=== PATIENT | male | born 1995 | race Caucasian/White ===

== ENCOUNTER 2020-05-26 14:40 | Emergency (ER) | payer SELFPAY ==
--- NOTE | ~2020-05-26 | XR_ITS ---
XR shoulder RT min 2V DATE: 05/26/2020 15:11 INDICATION: Fall on lateral/posterior shoulder. Anterior pain. TECHNIQUE: 4 views COMPARISON: None FINDINGS: No fracture or dislocation, periosteal reaction or bone destruction or abnormal soft tissue calcification. Normal alignment at the acromioclavicular and glenohumeral joints. IMPRESSION: Negative Reviewed, dictated and finalized at location B. [facility] IMPRESSION: Negative
[2020-05-26 14:47] VITALS: BP 143/76; PULSE 74; RESP 20; TEMP 36.4; O2SAT 100
--- NOTE | 2020-05-26 14:56 | ED.GENADULT ---
HPI - General Adult General Chief complaint: Extremity Injury, Upper Stated complaint: right collarbone injury Time Seen by Provider: 05/26/20 14:56 Source: patient and RN notes reviewed Mode of arrival: ambulatory Limitations: no limitations History of Present Illness HPI narrative: 24-year-old male presents with complaints of right shoulder and collar bone pain for the past 3 days. Dylan reports that he fell out of a chair forward hitting right shoulder and collar bone area on floor causing RT anterior shoulder and collar bone injury and pain. Tylenol (2 doses) last this morning 05:00 with no relief. Denies numbness or tingling. Hurts with movement of shoulder. Denies radiating pain. No loss of mobility. No swelling. Exacerbating factor is movement and palpation. Little relieving factor is rest. The dominant hand is the LEFT HAND. Remains active. The patient reports he have not been diagnosed with COVID-19. The patient reports he is not waiting for the results of a COVID-19 lab test. The patient reports he do not have fever, chills, weakness, or fatigue. The patient reports he do not have a new or worsening cough or shortness of breath. Denies chest pain. The patient reports he do not have any rhinorrhea, congestion, loss of taste, sore throat, nausea, vomiting, abdominal pain, and diarrhea. Tolerating po intake well. Denies recent traveling. Denies concerns for COVID-19 or exposures but was arrested over the weekend and in intermediate until 05/25/2015:00. At this time, patient is not suspected of having COVID-19. Some parts of this dictation were generated by voice recognition software and may contain typographical and/or grammatical inaccuracies. Related Data Allergies Allergy/AdvReac Type Severity Reaction Status Date / Time No Known Allergies Allergy Verified 05/26/20 14:57 Review of Systems Review of Systems: Narrative: CONSTITUTIONAL: Denies fever, chills, sweats. EYES: Denies visual changes, redness, discharge. ENT: Denies rhinorrhea, congestion, sore throat, otalgia. CARDIOVASCULAR: Denies chest pain, palpitations, edema. RESPIRATORY: Denies dyspnea, wheezing, cough. GASTROINTESTINAL: Denies abdominal pain, nausea, vomiting, diarrhea. SKIN: Denies rash or itching. MUSCULOSKELETAL: Denies acute back pain or myalgia. Complains of right shoulder and collar bone pain. NEUROLOGIC: Denies numbness or focal weakness. PSYCHIATRIC: Denies anxiety or depression. All other systems reviewed & are unremarkable except as noted in HPI and below. [facility] Past Medical History Medical History (Updated 05/26/20 @ 15:56 by EVELIA Hendricks) No significant past medical history Surgical History Surgical History (Updated 05/26/20 @ 15:56 by EVELIA Hendricks) No significant past surgical history Family History Family History (Updated 05/26/20 @ 15:57 by EVELIA Hendricks) Father Unknown family medical history Mother Hypertension Social History Social History (Updated 05/26/20 @ 16:01 by EVELIA Hendricks) Smoking status: Former smoker Tobacco type: cigarettes Second hand tobacco smoke exposure: No Smoking end date: 11/09/09 Alcohol intake: current Substance use: current Substance use type: marijuana Other substance usage details: Daily Living arrangements: with family Occupation/Education: unemployed Gender identity (if verbalized by the patient): Male Comments At time of signature, agree with nurse past medical, surgical, social, and family history. There is no relevant family history pertinent to the presenting complaint. Exam Narrative: Exam Narrative: GENERAL: This is a well-nourished, well-developed patient, in no apparent distress. Talks in full sentences and ambulates with steady gait without dyspnea. HEAD: normocephalic, atraumatic. EYES: PERRL. Sclera clear/white. Vision is grossly intact. NECK: Neck supple, non-tender without lymphadenopathy, m
[2020-05-26 14:57] VITALS: BP 143/76; PULSE 74; RESP 20; TEMP 36.4; O2SAT 100
[2020-05-26] MEDS: KETOROLAC (*BKC) 60 MG/2 ML VIAL IM (15:21)
== END 2020-05-26 15:45 | disposition home or self-care (01) ==
PROVIDERS: Emergency Provider Nurse Practitioner Family
DX: S20.211A Contusion of right front wall of thorax, initial encounter (principal); W07.XXXA Fall from chair, initial encounter; S43.401A Unspecified sprain of right shoulder joint, initial encounter; S40.011A Contusion of right shoulder, initial encounter; Z87.891 Personal history of nicotine dependence
CPT/HCPCS: 73030; 96372; 99213; G0463; J1885

== ENCOUNTER 2021-04-17 10:44 | Emergency (ER) | payer SELFPAY ==
--- NOTE | 2021-04-17 10:48 | ED.URI ---
HPI - URI/Sore Throat General Chief Complaint: Upper Respiratory Infection Stated Complaint: Congestion Time Seen by Provider: 04/17/21 10:48 Source: patient and RN notes reviewed History of Present Illness HPI Narrative: Patient is a 25-year-old male who presents the urgent care with complaints of sinus congestion. Patient states that started last week and he did have a mild fever. Patient states he had a negative Covid test on and his symptoms have now mostly resolved. Patient states that he missed work last week and needed to be evaluated by a doctor before he goes back to work tomorrow. Patient currently denies any acute complaints. Denies of any fever, nausea, vomiting. Patient did not take anything [id number] for his symptoms last week. No other acute complaints. No acute distress noted. Patient read the plan of care. Some parts of this dictation were generated by voice recognition software and may contain typographical and/or grammatical inaccuracies. Related Data Allergies Allergy/AdvReac Type Severity Reaction Status Date / Time No Known Allergies Allergy Verified 05/26/20 14:57 Review of Systems Review of Systems: CONSTITUTIONAL: Denies fever, chills, or sweats. EYES: Denies visual changes, redness, or discharge. ENT: Denies rhinorrhea,sore throat, or otalgia. Reports a mild sinus congestion CARDIOVASCULAR: Denies chest pain, palpitations, or edema. RESPIRATORY: Denies cough or dyspnea. GASTROINTESTINAL: Denies abdominal pain, nausea, vomiting, or diarrhea. GENITOURINARY: Denies dysuria or hematuria. SKIN: Denies rash or itching. MUSCULOSKELETAL: Denies back pain, joint pain, or myalgia. NEUROLOGIC: Denies headache, numbness, or weakness. All other systems reviewed are negative, except as documented in HPI. [facility] Past Medical History Medical History (Updated 04/17/21 @ 10:59 by EVELIA Marsh) No significant past medical history Surgical History Surgical History (Updated 05/26/20 @ 15:56 by EVELIA Hendricks) No significant past surgical history Family History Family History (Updated 05/26/20 @ 15:57 by EVELIA Hendricks) Father Unknown family medical history Mother Hypertension Social History Social History (Updated 05/26/20 @ 16:01 by EVELIA Hendricks) Smoking status: Former smoker Tobacco type: cigarettes Second hand tobacco smoke exposure: No Smoking end date: 11/09/09 Alcohol intake: current Substance use: current Substance use type: marijuana Other substance usage details: Daily Gender identity (if verbalized by the patient): Male Comments At the time of my signature, I reviewed and agree with the nursing past medical, surgical, social, and family history. There is no relevant family history pertinent to the patient complaint. Exam Narrative: GENERAL: This is a well-nourished, well-developed patient, in no apparent distress. HEAD: normocephalic, atraumatic. EYES: PERRL. Sclera clear/white. Vision is grossly intact. EARS: External ears normal, auditory canals clear and without drainage, TMs normal without perforation. Hearing grossly intact. NOSE: External nose normal with no obvious nasal discharge, nares without redness, clear rhinorrhea. THROAT: Mucous membranes moist, posterior pharynx clear. Mild postnasal drainage NECK: Neck supple CARDIOVASCULAR: Regular rate and rhythm without murmurs, gallops, or rubs. RESPIRATORY: Clear to auscultation. Breath sounds equal bilaterally. No wheezes, rales, or rhonchi. SKIN: warm, intact with no suspicious lesions or rash, good texture and turgor. NEURO: awake, alert, and oriented to person, place and time. There were no obvious focal neurologic abnormalities. EXTREMITIES: No clubbing, cyanosis, or edema. Course Vital Signs Vital signs: Vital Signs Temperature 99.0 F 04/17/21 10:50 Pulse Rate 71 04/17/21 10:50 Respiratory Rate 18 04/17/21 10:50 Blood Pressure
[2021-04-17 10:50] VITALS: BP 134/68; PULSE 71; RESP 18; TEMP 37.2; O2SAT 97
== END 2021-04-17 11:03 | disposition home or self-care (01) ==
PROVIDERS: Emergency Provider Nurse Practitioner Family
DX: J00 Acute nasopharyngitis [common cold] (principal); Z87.891 Personal history of nicotine dependence
CPT/HCPCS: 99211; G0463

== ENCOUNTER 2022-10-11 18:31 | Emergency (ER) | payer BC, SELFPAY ==
[2022-10-11 18:38] VITALS: BP 116/78; PULSE 97; RESP 20; TEMP 37.3; O2SAT 99
--- NOTE | 2022-10-11 18:50 | ED.URI ---
HPI - URI/Sore Throat General Chief Complaint: Upper Respiratory Infection Stated Complaint: sore throat / cold Source: patient and RN notes reviewed History of Present Illness HPI Narrative: 26-year-old male presents to urgent care with complaints of congestion sore throat, cough chest tightness, and body aches since yesterday. Patient denies any vomiting, diarrhea, abdominal pain. Patient states his chest hurts coughing. Patient has not taken anything for his symptoms. Related Data Home Medications Medication Instructions Recorded Confirmed No Home Medications 10/11/22 10/11/22 Allergies Allergy/AdvReac Type Severity Reaction Status Date / Time No Known Allergies Allergy Verified 10/11/22 18:47 Review of Systems Review of Systems: Pertinent positives and pertinent negatives per HPI. [facility] Past Medical History Medical History (Updated 10/11/22 @ 19:00 by Shantel Muir, QUINT[place]) No significant past medical history Surgical History Surgical History (Updated 05/26/20 @ 15:56 by EVELIA Hendricks) No significant past surgical history Family History Family History (Updated 05/26/20 @ 15:57 by EVELIA Hendricks) Father Unknown family medical history Mother Hypertension Social History Social History (Updated 05/26/20 @ 16:01 by EVELIA Hendricks) Smoking status: Former smoker Tobacco type: cigarettes Second hand tobacco smoke exposure: No Smoking end date: 11/09/09 Alcohol intake: current Substance use: current Substance use type: marijuana Other substance usage details: Daily Living arrangements: with family Occupation/Education: unemployed Gender identity (if verbalized by the patient): Male Comments At the time of my signature, I reviewed and agree with the nursing past medical, surgical, social, and family history. There is no relevant family history pertinent to the patient complaint. Exam Narrative: GENERAL: This is a well-nourished, well-developed patient, in no apparent distress. HEAD: normocephalic, atraumatic. EYES: Sclera clear/white. Vision is grossly intact. EARS: External ears normal, auditory canals clear and without drainage, TMs normal without perforation. Hearing grossly intact. NOSE: Congestion THROAT: Mucous membranes moist, posterior pharynx erythemic. No exudate noted. NECK: Neck supple, non-tender without lymphadenopathy, masses or thyromegaly. CARDIOVASCULAR: Regular rate and rhythm without murmurs, gallops, or rubs. RESPIRATORY: Clear to auscultation. Breath sounds equal bilaterally. No wheezes, rales, or rhonchi. SKIN: warm, intact with no suspicious lesions or rash, good texture and turgor. NEURO: awake, alert, and oriented to person, place and time. There were no obvious focal neurologic abnormalities. Course Course Level of Care: Express Care Visit Vital Signs Vital signs: Vital Signs Temperature 99.2 F 10/11/22 18:38 Pulse Rate 97 10/11/22 18:38 Respiratory Rate 20 10/11/22 18:38 Blood Pressure 116/78 10/11/22 18:38 Pulse Oximetry 99 10/11/22 18:38 Oxygen Delivery Room Air 10/11/22 18:38 Temperature 99.2 F 10/11/22 18:38 Pulse Rate 97 10/11/22 18:38 Respiratory Rate 20 10/11/22 18:38 Blood Pressure 116/78 10/11/22 18:38 Pulse Oximetry 99 10/11/22 18:38 Oxygen Delivery Room Air 10/11/22 18:38 Reviewed MDM - URI/Sore Throat MDM Narrative Medical decision making narrative: Rapid strep is negative in the office; however we will send to the lab for confirmation; there is a small percentage chance that it can come back positive; if it is, we will call you in 2-3days; and your prescription will be call in to your pharmacy. However, there is NO indication for antibiotic at this time. -Increase your fluids and Vitamin C. -Oral rinses such as: Salt water gargles and/or may use topical anesthetic (eg. Chloraseptic spray) or lozenges to relieve dryness or throat
== END 2022-10-11 19:05 | disposition home or self-care (01) ==
PROVIDERS: Emergency Provider Nurse Practitioner Family
DX: B34.9 Viral infection, unspecified (principal); J02.9 Acute pharyngitis, unspecified; Z87.891 Personal history of nicotine dependence; F12.90 Cannabis use, unspecified, uncomplicated
CPT/HCPCS: 87081; 87880; 99213; G0463

== ENCOUNTER 2023-02-23 19:11 | Emergency (ER) | payer BC, SELFPAY ==
--- NOTE | 2023-02-23 19:13 | ED.SOB ---
HPI - SOB/Dyspnea General Chief Complaint: Shortness of Breath/Dyspnea Stated Complaint: sob Time Seen by Provider: 02/23/23 19:12 Source: patient Mode of arrival: ambulatory Limitations: no limitations History of Present Illness HPI Narrative: Dylan is a 27-year-old male patient presenting to the clinic today with complaints of shortness of breath times, cough, and congestion. He reports no fever or chills. States significant other was sick for 5 days prior to him get sick. Did at home COVID test today and was negative. Symptoms started yesterday after work. Is requesting a work note. Related Data Allergies Allergy/AdvReac Type Severity Reaction Status Date / Time No Known Allergies Allergy Verified 02/23/23 19:16 Review of Systems Review of Systems: Pertinent positives per HPI. Patient denies any fever, chills, rash, headache, visual changes, dizziness, sore throat, chest pain, palpitations, nausea, vomiting, diarrhea, constipation, abdominal pain, or any urinary issues. [facility] Past Medical History Medical History No significant past medical history Surgical History Surgical History No significant past surgical history Family History Family History Father Unknown family medical history Mother Hypertension Social History Social History Smoking status: Former smoker Tobacco type: cigarettes Second hand tobacco smoke exposure: No Smoking end date: 11/09/09 Alcohol intake: current Substance use: current Substance use type: marijuana Other substance usage details: Daily Living arrangements: with family Occupation/Education: unemployed Gender identity (if verbalized by the patient): Male Comments At the time of my signature, I reviewed and agree with the nursing past medical, surgical, social, and family history. There is no relevant family history pertinent to the patient complaint. Exam Narrative: General: Well-developed, well nourished, in no apparent distress Head: Normocephalic, atraumatic Eyes: Pupils equally round and reactive to light bilaterally, EOM intact, sclera and conjunctive clear, no discharge, lids normal Ears: TMs intact and clear, ear canals clear, no drainage, grossly hearing normal. Nose: Nares patent, clear nasal discharge, moderate inflammation, no sinus tenderness. Mouth: Oropharynx without lesions or masses, good dentition, MMM. Neck: Supple, trachea midline, no enlargement of anterior or posterior cervical nodes, no thyroid masses or goiter palpable. Cardio: Regular rate and rhythm, s1 and s2 normal, no murmur appreciated. Resp: Clear to auscultation bilaterally anteriorly and posteriorly, no rhonchi, rales, wheezing or rubs Course Course Emergency Course: Portions of this record may have been created with voice recognition software. Level of Care: Express Care Visit Vital Signs Vital signs: Vital Signs Temperature 37.4 C 02/23/23 19:18 Pulse Rate 80 02/23/23 19:18 Respiratory Rate 16 02/23/23 19:18 Blood Pressure 141/97 H 02/23/23 19:18 Pulse Oximetry 99 02/23/23 19:18 Oxygen Delivery Room Air 02/23/23 19:18 Temperature 37.4 C 02/23/23 19:18 Pulse Rate 80 02/23/23 19:18 Respiratory Rate 16 02/23/23 19:18 Blood Pressure 141/97 H 02/23/23 19:18 Pulse Oximetry 99 02/23/23 19:18 Oxygen Delivery Room Air 02/23/23 19:18 Vital signs reviewed MDM - SOB/Dyspnea MDM Narrative Medical decision making narrative: At the time of visit patient is resting comfortably on the exam table. SpO2 is 99% on room air in a patient is able to speak in full sentences. Patient is reporting some discomfort with deep breaths and head congestion and cough. He denies any known fever
[2023-02-23 19:18] VITALS: BP 141/97; PULSE 80; RESP 16; TEMP 37.4; O2SAT 99
== END 2023-02-23 19:30 | disposition home or self-care (01) ==
PROVIDERS: Emergency Provider Nurse Practitioner Family
DX: J06.9 Acute upper respiratory infection, unspecified (principal); R06.02 Shortness of breath; Z87.891 Personal history of nicotine dependence; F12.90 Cannabis use, unspecified, uncomplicated
CPT/HCPCS: 99213; G0463

== ENCOUNTER 2023-12-10 15:43 | Emergency (ER) | payer BC, SELFPAY ==
[2023-12-10 15:49] VITALS: BP 144/99; PULSE 89; RESP 16; TEMP 36.9; O2SAT 97
--- NOTE | 2023-12-10 15:54 | ED.WOUNDLAC ---
HPI - Wound/Laceration General Chief Complaint: Wound/Laceration Stated Complaint: Left foot toe wound Time Seen by Provider: 12/10/23 15:54 Source: patient, RN notes reviewed and old records reviewed Mode of arrival: ambulatory Limitations: no limitations History of Present Illness HPI narrative: 28-year-old male to Express Care for complaint of wound to left great toe. Patient states that he cut it on a sharp object in the [place] the [place] approximately 4 days ago. Patient endorses increased redness, swelling, tenderness to entire digit. Patient concerned for infection. Patient uncertain of Tdap status. Patient denies numbness, tingling, pain radiating into foot or ankle, allergies, pertinent medical history. Patient able to ambulate without difficulty. patient in no acute distress. Related Data Allergies Allergy/AdvReac Type Severity Reaction Status Date / Time No Known Allergies Allergy Verified 02/23/23 19:16 Review of Systems Review of Systems: All systems reviewed & are unremarkable except as noted in HPI and below Constitutional: Constitutional: Reports as per HPI, Denies body ache(s), Denies chills, Denies fatigue and Denies fever(s) Eyes: Eyes: Reports no additional eye complaints ENT: Reports system reviewed and no additional complaints, except as documented Cardiovascular: Cardiovascular: Reports no additional cardiovascular complaints, Denies chest pain and Denies dyspnea Respiratory: Respiratory: Reports no additional respiratory complaints, Denies cough and Denies dyspnea Musculoskeletal: Musculoskeletal: Reports no additional musculoskeletal complaints Integumentary/Breasts: Skin/Breast: Reports as per HPI, Reports swelling, Reports erythema and Reports wounds Neurologic: Reports system reviewed and no additional complaints, except as documented Psychiatric: Psychiatric: Reports no additional psychiatric complaints [facility] Past Medical History Medical History No significant past medical history Surgical History Surgical History No significant past surgical history Family History Family History Father Unknown family medical history Mother Hypertension Social History Social History Smoking status: Former smoker Tobacco type: cigarettes Second hand tobacco smoke exposure: No Smoking end date: 11/09/09 Alcohol intake: current Substance use: current Substance use type: marijuana Other substance usage details: Daily Living arrangements: with family Occupation/Education: unemployed Gender identity (if verbalized by the patient): Male Comments At the time of my signature, I reviewed and agree with the nursing past medical, surgical, social, and family history. There is no relevant family history pertinent to the patient complaint. Exam Const: General: cooperative, healthy appearing, comfortable, no acute distress, alert and well nourished Nutritional Appearance: well nourished Orientation/consciousness: patient oriented x3 Limitations: no limitations HENMT: Head: normal to inspection Ears: external ears normal Face/Nose/Sinus: Normal external nose present, Normal nares present, normal facial exam, No erythema and No edema Face and sinus: normal facial exam, no erythema and no edema Mouth: Yes Normal oral and palatal mucosa present Eyes: General: appearance normal, both eyes and all related structures Neck: Neck: normal visual inspection, full ROM and no meningeal signs Lymphatic: no lymphadenopathy noted and no lymphedema noted Chest: Chest palpation & inspection: normal inspection of the chest Resp: Effort & Inspection: normal respiratory effort and able to speak in complete sentences Auscultation: clear to ausculta
[2023-12-10] MEDS: TETANUS,DIPHTHERIA,AC PERTUSSIS ADULT (0.5 ML) BOOSTRIX IM (16:16)
== END 2023-12-10 16:22 | disposition home or self-care (01) ==
PROVIDERS: Emergency Provider Nurse Practitioner Family
DX: S91.112A Laceration without foreign body of left great toe without damage to nail, initial encounter (principal); L03.032 Cellulitis of left toe; W26.9XXA Contact with unspecified sharp object(s), initial encounter; Z23 Encounter for immunization; Z87.891 Personal history of nicotine dependence; F12.90 Cannabis use, unspecified, uncomplicated
CPT/HCPCS: 90471; 90715; 99213; G0463

== ENCOUNTER 2024-05-26 09:04 | Emergency (ER) | payer BC, SELFPAY ==
[2024-05-26 09:10] VITALS: BP 141/101; PULSE 66; RESP 20; TEMP 36.8; O2SAT 98
--- NOTE | 2024-05-26 09:28 | ED_ITS ---
HPI - Dental/Oral General Chief complaint: Dental/Oral Stated complaint: Toothache/Ear Pain/Headache Time Seen by Provider: 05/26/24 09:28 Source: patient Mode of arrival: ambulatory History of Present Illness HPI Narrative: 28-year-old male presented for complaint of left upper and lower dental pain worsening over the past 2 weeks. Endorses broken teeth due to these areas but has not had significant problems in the past. He has been taking Tylenol applying [id number] gel without. Reports pain is worse with chewing. Denies difficulty swallowing or maintaining secretions. Started taking leftover cephalexin 3 days ago. MD Complaint: tooth pain Related Data Allergies Allergy/AdvReac Type Severity Reaction Status Date / Time No Known Allergies Allergy Verified 02/23/23 19:16 Review of Systems Review of Systems: CONSTITUTIONAL: Denies body aches, fever, chills ENT: Denies rhinorrhea, congestion, sore throat, or otalgia. Reports dental pain CARDIOVASCULAR: Denies chest pain, palpitations RESPIRATORY: Denies cough or dyspnea. SKIN: Denies rash, itching, or wounds. MUSCULOSKELETAL: Denies myalgia. NEUROLOGIC: Denies headache, numbness, tingling, or weakness. [facility] Past Medical History Medical History No significant past medical history Surgical History Surgical History No significant past surgical history Family History Family History Father Unknown family medical history Mother Hypertension Social History Social History Smoking status: Former smoker Tobacco type: cigarettes Second hand tobacco smoke exposure: No Smoking end date: 11/09/09 Alcohol intake: current Substance use: current Substance use type: marijuana Other substance usage details: Daily Living arrangements: with family Occupation/Education: unemployed Gender identity (if verbalized by the patient): Male Comments At time of signature, I have reviewed and agree with nursing past medical, surgical, social and family history unless otherwise noted. Please see nursing chart for further information. There is no relevant family history pertinent to the presenting complaint Exam Narrative: GENERAL: Appears in pain; no acute distress. HEAD: Normocephalic, atraumatic. No apparent facial swelling. EYES: EOMI. No redness or drainage. Conjunctivae normal. ENT: Dental pain location of ##18,19 broken teeth gum swelling erythema and tender with palpation. Also pain reported to #19, broken tooth, mild gum swelling. Mucous membranes pink and moist. TMs normal bilaterally. Throat normal. no dysphagia, odynophagia, dysphonia, or dyspnea. No uvular deviation or soft palate edema. NECK: Normal AROM. No lymphadenopathy. no induration below mandible, no neck pain. CHEST: No respiratory distress. Clear to auscultation. HEART: Regular rate and rhythm. No murmur appreciated. SKIN: Warm, dry, no rash. Normal skin turgor. NEURO: No focal deficits. Alert and oriented x3. Gait steady. Course Course Emergency Course: Patient is aware of diagnosis, understands and agrees to treatment plan. Anticipatory guidance given. Patient agrees to follow-up as directed and is aware of reasons to seek care at the emergency department. Portions of this record may have been created with voice recognition software Level of Care: Express Care Visit Vital Signs Vital signs: Vital Signs Temperature 98.3 F 05/26/24 09:10 Pulse Rate 66 05/26/24 09:10 Respiratory Rate 20 05/26/24 09:10 Blood Pressure 141/101 H 05/26/24 09:10 Pulse Oximetry 98 05/26/24 09:10 Oxygen Delivery Room Air 05/26/24 09:10 Temperature 98.3 F 05/26/24 09:10 Pulse Rate 66 05/26/24 09:10 Respiratory Rate 20 05/26/24 09:10 Blood Pressure 141/101 H 05/26/24 09:10 Pulse Oximetry 98 05/26/24 09:10 Oxygen Delivery Room Air 05/26/24 09:10 MDM - Dental/Oral MDM Narrative Medical decision making narrative: Patients pain and complaint coupled with physical findings are consistent with dentalgia/ dental abscess There are no focal signs of space occupying lesions that are compromising to the airway; Patient is non-toxic appearing. The floor of the mouth is soft with no signs of Brian's Angina; Patient is without trismus or drooling and able to swallow secretions. Patient is felt appropriate for discharge home with dental follow up. Discharge Plan Discharge Clinical Impression: Dental abscess Patient Disposition: Home, Self-Care Condition: Stable Instructions: Antibiotic Form, Dental Abscess (ED) Additional Instructions: Take antibiotic as directed Lidocaine as needed, as prescribed to the site May apply heat or ice to the face Gentle brushing and flossing. Rinse mouth with warm salt water at least 2 times a day. Alternate Tylenol and ibuprofen as needed for pain Follow-up with the dentist as soon as possible--see the list provided go to the ER for any worsening symptoms or concerns Patient Language: Moldovan Prescriptions: New ibuprofen 800 mg tablet 800 mg PO TID PRN (Reason: pain) Qty: 15 0RF lidocaine HCl [Lidocaine Viscous] 2 % solution 1 applic mucous membrane TID PRN (Reason: pain) Qty: 100 0RF Rx Instructions: apply with cotton swab to site of pain amoxicillin-pot clavulanate 875-125 mg tablet 1 tablet PO Q12H 7 Days Qty: 14 0RF No Action cephalexin 500 mg capsule 500 mg PO Q6H 5 Days Qty: 20 0RF Follow-up/Referrals: PHYSICIAN,SALES AND MARKETING AGENT [Primary Care Provider] - Time of Disposition: 09:34
--- OUTSIDE RECORDS SUMMARY | 2024-06-02 00:34 | XMS_ITS | Encounter Summary ---
Author Organization [facility] Care Team Providers Care Splitting Machine Operator Name Role Phone Provider, None Primary Care Provider Unavailabl e Encounter Details Date Type Department Care Team (Latest Contact Info) Description 05/31/2021 Travel Social History Tobacco Use Types Packs/Day Years Used Date Smoking Tobacco: Never Alcohol Use Standard Drinks/Week Comments Never 0 (1 standard drink = 0.6 oz pur e alcohol) AUDIT-C Answer Date Recorded Q1: How often do you have a drink containing alc ohol? Never 09/21/2019 Average Number of Drinks Not on file 020 Frequency of Binge Drinking Not on file 09/09 Sex and Gender Information Value Date Recorded Sex Assigned at Not on file Legal Sex Male 11:41 PM CDT Gender Identity Not on file Sexual Orientation Not on file COVID-19 Exposure Response Date Recorded In the last month, have you been in contact with someone who was confirmed or suspected to have Coronavirus / COVID-19? No / Unsure 05/31/2021 6:07 PM E COMMERCE ANALYST documented as of this encounter Plan of Treatment Not on file documented as of this encounter Visit Diagnoses Not on filedocumented in this encounter Care Teams Splitting Machine Operator Relationship Specialty Start Date End Date Provider, None [place] PCP - General 11/14/16 documented as of this encounter
--- OUTSIDE RECORDS SUMMARY | 2024-06-02 00:34 | XMS_ITS | Encounter Summary ---
Author Organization [facility] Care Team Providers Care Elect Equip Maint Eng Name Role Phone Provider, None Primary Care Provider Unavailabl e Encounter Details Date Type Department Care Team (Latest Contact Info) Description 08/01/2021 Travel Social History Tobacco Use Types Packs/Day Years Used Date Smoking Tobacco: Never Smokeless Tobacco: Never Alcohol Use Standard Drinks/Week Comments [...] have Coronavirus / COVID-19? No / Unsure 08/01/2021 2:40 PM MULTIGRAPHER documented as of this encounter Plan of Treatment Not on file documented as of this encounter Visit Diagnoses Not on filedocumented in this encounter Care Teams Elect Equip Maint Eng Relationship Specialty Start Date End Date Provider, None [place] PCP - General 11/14/16 documented as of this encounter
--- OUTSIDE RECORDS SUMMARY | 2024-06-02 00:34 | XMS_ITS | Encounter Summary ---
Author Organization [facility] Address [address] [place] [address] Phone Care Team Providers Care Woven Wood Shade Assembler Name Role Phone Provider, None Primary Care Provider Unavailabl e Reason for Visit * Reason Comments Generalized Body Aches Encounter Details Date Type Department Care Team (Late st Contact Info) Description 08/01/2021 2:43 PM SHOWCASE TRIMMER - 08/01/2021 3:42 PM SHOWCASE TRIMMER Emergency [facility] Emergency [address] [place] [address] Eran Whipple, PAC [address] [place] [address] Strep throat Discharge Disposition: Discharged to home or Selfcare Social History Tobacco Use Types Packs/Day Years [...] COVID-19? No / Unsure 08/01/2021 2:40 PM SHOWCASE TRIMMER documented as of this encounter Last Filed Vital Signs Vital Sign Reading Time Taken Comments Blood Pressure 103/67 08/01/2021 2:41 PM SHOWCASE TRIMMER Pulse 76 08/01/2021 2:41 PM SHOWCASE TRIMMER Temperature 37.8 ??C (100 ??F) 08/01/2021 2:41 PM SHOWCASE TRIMMER Respiratory Rate 18 08/01/2021 2:41 PM SHOWCASE TRIMMER Oxygen Saturation 97% 08/01/2021 2:41 PM SHOWCASE TRIMMER Inhaled Oxygen Concentration - - Weight 68 kg (150 lb) 08/01/2021 2:41 PM SHOWCASE TRIMMER Height 177.8 cm (5' 10 ) 08/01/2021 2:41 PM SHOWCASE TRIMMER Body Mass Index 21.52 08/01/2021 2:41 PM SHOWCASE TRIMMER documented in this encounter Discharge Instructions * Discharge Instructions* Eran Whipple PAC - 08/01/2021 3:18 PM SHOWCASE TRIMMER Take antibiotics as prescribed. [id number] Tylenol or ibuprofen may be used. Increase fluids.Follow-up with your doctor, or the group sign. CASE TRIMMER * Attachments The following attachments cannot be sent through Care Everywhere. * Strep Throat Adult Lrao-cx-Gykm (Irish) documented in this encounter Medications at Time of Discharge albuterol 108 (90 Base) MCG/ACT Aerosol Solution take 2 Puffs by inhalation every 6 hours as needed for Cough. 1 Inhaler 09/21/2019 clonazePAM (KLONOPIN) 1 MG Tablet Take 1 Tab by mouth nightly. 10 Tab 09/21/2019 ondansetron (ZOFRAN ODT) 4 MG TABLET DISPERSIBLE Take 1 Tab by mouth every 4 hours as needed for Nausea. 25 Tab 0 11/14/2016 Amoxicillin 500 MG Tablet Take 1 Tablet by mouth 2 times daily for 10 days. 20 Tablet 08/01/2021 2 documented as of this encounter ED Notes * Kate Corado RN - 08/01/2021 3:42 PM CST Patient discharged. Discharge instructions and patient educational material reviewed with patient; questions and concerns addressed; patient verbalizes understanding, using teach back. Patient was given 1 prescription. Patient was ambulatory with steady gait; no distress noted. CASE TRIMMER * Eran Whipple, PAC - 08/01/2021 3:13 PM CST Chief Complaint Patient presents with ??? Generalized Body Aches HPI Patient presents ambulatory to the emergency room through triage complaining of sore throat, body aches, cough. Symptoms started yesterday. Girlfriend recently tested positive for strep throat and influenza, and was placed on antibiotics. No fever reported per patient today. No medication prior to arrival. He is here with his 2 children who have similar symptoms. No current facility-administered medications for this encounter. Current Outpatient Medications Medication Sig Dispense Refill ??? albuterol 108 (90 Base) MCG/ACT Aerosol Solution take 2 Puffs by inhalation every 6 hours as needed for Cough. 1 Inhaler 0 ??? Amoxicillin 500 MG Tablet Take 1 Tablet by mouth 2 times daily for 10 days. 20 Tablet 0 ??? clonazePAM (KLONOPIN) 1 MG Tablet Take 1 Tab by mouth nightly. 10 Tab 0 ??? ondansetron (ZOFRAN ODT) 4 MG TABLET DISPERSIBLE Take 1 Tab by mouth every 4 hours as needed for Nausea. 25 Tab 0 No Known Allergies History reviewed. No pertinent past medical history. No past surgical history on file. Social History Socioeconomic History ??? Marital status: Single Spouse name: Not on file ??? Number of children: Not on file ??? Years of education: Not on file ??? Highest education level: Not on file Occupational History ??? Not on file Tobacco Use ??? Smoking status: Never Smoker ??? Smokeless tobacco: Never Used Substance and Sexual Activity ??? Alcohol use: Never ??? Drug use: Yes Types: Marijuana ??? Sexual activity: Not on file Other Topics Concern ??? Not on file Social History Narrative ??? Not on file BP 103/67 Pulse 76 Temp 100 ??F (37.8 ??C) (Temporal) Resp 18 Ht 5' 10 (1.778 m) Wt 150 lb (68 kg) SpO2 97% BMI 21.52 kg/m?? Review of Systems Constitutional: Negative for activity change, appetite change and fever. HENT: Positive for sore throat. Negative for congestion and rhinorrhea. Eyes: Negative. Respiratory: Positive for cough. Negative for shortness of breath, wheezing and stridor. Cardiovascular: Negative for chest pain. Gastrointestinal: Negative for abdominal pain. Musculoskeletal: Positive for arthralgias and myalgias. Skin: Negative for rash. Neurological: Negative for dizziness and headaches. Hematological: Negative for adenopathy. Psychiatric/Behavioral: Negative for behavioral problems. Physical Exam Vitals and nursing note reviewed. Exam conducted with a job press operator present. Constitutional: General: He is not in acute distress. Appearance: Normal appearance. He is normal weight. He is not ill-appearing, toxic-appearing or diaphoretic. HENT: Head: Normocephalic and atraumatic. Right Ear: Tympanic membrane, ear canal and external ear normal. Left Ear: Tympanic membrane, ear canal and external ear normal. Nose: Nose normal. Mouth/Throat: Mouth: Mucous membranes are moist. Pharynx: Oropharyngeal exudate and posterior oropharyngeal erythema present. Eyes: Extraocular Movements: Extraocular movements intact. Conjunctiva/sclera: Conjunctivae normal. Pupils: Pupils are equal, round, and reactive to light. Cardiovascular: Rate and Rhythm: Normal rate and regular rhythm. Pulses: Normal pulses. Heart sounds: Normal heart sounds. Pulmonary: Effort: Pulmonary effort is normal. No respiratory distress. Breath sounds: Normal breath sounds. No stridor. No wheezing, rhonchi or rales. Abdominal: General: Abdomen is flat. Bowel sounds are normal. There is no distension. Palpations: Abdomen is soft. Tenderness: There is no abdominal tenderness. Musculoskeletal: General: Normal range of motion. Cervical back: Normal range of motion and neck supple. No rigidity or tenderness. Skin: General: Skin is warm and dry. Capillary Refill: Capillary refill takes less than 2 seconds. Findings: No rash. Neurological: General: No focal deficit present. Mental Status: He is alert and oriented to person, place, and time. Cranial Nerves: No cranial nerve deficit. Motor: No weakness. Coordination: Coordination normal. Gait: Gait normal. Psychiatric: Mood and Affect: Mood normal. Behavior: Behavior normal. Thought Content: Thought content normal. Judgment: Judgment normal. Procedures Imaging Results None Labs Reviewed POCT GROUP A STREP SCREEN RAPID POCT INFLUENZA A & B MDM Number of Diagnoses or Management Options Amount and/or Complexity of Data Reviewed Clinical lab tests: ordered and reviewed Risk of Complications, Morbidity, and/or Mortality Presenting problems: low Diagnostic procedures: low Management options: low Patient Progress Patient progress: stable 3:16 p.m.-patient is stable. ENT exam is noted. No peritonsillar abscess. Patient swallows with ease. Lungs clear bilaterally. Low-grade temperature of 100?? F noted. Otherwise unremarkable vital signs. Nontoxic appearance. Rapid strep positive. Will discharge home with antibiotics and PCP follow-up. No Tamiflu to be given, rather: Flu medication [id number] may be used. Coding Clinical Impression 1. Strep throat 2. Exposure to influenza Cosigned by Burton Barrera MD at 08/01/2021 4:40 PM SHOWCASE TRIMMER CASE TRIMMER CASE TRIMMER * Kate Corado RN - 08/01/2021 3:05 PM CST Influenza and strep swabs collected. No changes in pt condition since triage. No distress noted. CASE TRIMMER * Kate Corado RN - 08/01/2021 2:42 PM CST Patient to triage with sons with complaints of generalized body aches, chills, cough, and sore throat since yesterday. States that his girlfriend was recently diagnosed with strep and influenza. CASE TRIMMER documented in this encounter Plan of Treatment Not on file documented as of this encounter Procedures Procedure Name Priority Date/Time Associated Diagnosis Comments POCT INFLUENZA A & B STAT 08/01/2021 3:05 PM SHOWCASE TRIMMER POCT GROUP A STREP SCREEN RAPID STAT 08/01/2021 3:05 PM SHOWCASE TRIMMER documented in this encounter Results * POCT Influenza A & B (08/01/2021 3:05 PM SHOWCASE TRIMMER) POC INFLU A Positive Group A POC INFLU B Presumptive negative Group B POC INFLUENZA CONTROL Aircraft Mechanic Structures Pass 08/01/2021 3:05 PM SHOWCASE TRIMMER us Burton Barrera MD POINT OF CARE TESTING ([facility]) Final Result * POCT Group A Strep Screen Rapid (08/01/2021 3:05 PM SHOWCASE TRIMMER) POC STREP SCRN Positive POC STREP SCREEN CONTROL Aircraft [employer]ic [employer] Pass 08/01/2021 3:05 PM SHOWCASE TRIMMER us Burton Barrera MD POINT OF CARE TESTING ([facility]) Final Result documented in this encounter Visit Diagnoses Diagnosis Strep throat- Primary Streptococcal sore throat Exposure to influenza Contact with or exposure to other viral diseases documented in this encounter Care Teams Woven Wood Shade Assembler Relationship Specialty Start Date End Date Provider, None [place] PCP - General 11/14/16 documented as of this encounter
--- OUTSIDE RECORDS SUMMARY | 2024-06-02 00:34 | XMS_ITS | Encounter Summary ---
Author Organization [facility] Address [address] [place] [address] Phone Care Team Providers Care Surgical Instrument Technician Name Role Phone Provider, None Primary Care Provider Unavailabl e Reason for Visit * Reason Comments Chest Pain Encounter Details Date Type Department Care Team ([facility] st Contact Info) Description 09/21/2019 7:53 PM CDT - 09/21/2019 10:28 PM CDT Emergency [facility] Emergency [address] [place] [address] Rom Campbell MD [address] [place] [address] Anxiety attack Discharge Disposition: Discharged to home or Selfcare [...] have Coronavirus / COVID-19? No / Unsure 09/21/2019 7:46 PM CDT documented as of this encounter Last Filed Vital Signs Vital Sign Reading Time Taken Comments Blood Pressure 124/89 09/21/2019 10:15 PM CDT Pulse 69 09/21/2019 10:15 PM CDT Temperature 37.1 ??C (98.7 ??F) 09/21/2019 7:47 PM CD T Respiratory Rate 17 09/21/2019 10:15 PM CDT Oxygen Saturation 98% 09/21/2019 10:15 PM CDT Inhaled Oxygen Concentration - - Weight 77.1 kg (170 lb) 09/21/2019 7:47 PM CDT Height 177.8 cm (5' 10 ) 09/21/2019 7:47 PM CDT Body Mass Index 24.39 09/21/2019 7:47 PM CDT documented in this encounter Functional Status documented as of this encounter Discharge Instructions * Attachments The following attachments cannot be sent through Care Everywhere. * Anxiety, Your Body's Response to (Malawian) * Bronchitis, No Antibiotic (Adult) (Malawian) documented in this encounter Medications at Time [...] needed for Nausea. 25 Tab 0 11/14/2016 documented as of this encounter ED Notes * Robin Smith RN - 09/21/2019 10:28 PM CDT Patient discharged. Discharge instructions and patient educational material reviewed with patient; questions and concerns addressed; patient verbalizes understanding, using teach back. Patient was given 2 prescriptions. Patient was informed no drinking alcohol, driving or operating heavy machinery while taking narcotics or muscle relaxants. * Robin Smith RN - 09/21/2019 9:30 PM CDT Pt resting in room. No s/s of distress. VSS. Call light in reach. * Robin Smith RN - 09/21/2019 8:35 PM CDT Report taken from Angi SINGH. * Rom Campbell MD - 09/21/2019 8:24 PM CDT Chief Complaint Patient presents with ??? Chest Pain Dylan Nassar is a 23 y.o. male who presents to the emergency department complaining of chest pain onset today. The patient has associated sx of SOB and vomiting onset 6 days ago. He reports the pain is a 7/10 in severity at its worst. The patient states the pain is constant, but is waxing and waning. He reports he has not had a BM in 6 days. The patient denies sick contacts or recent travel,change in appetite or taste, or cough. Past medical history: Illnesses: None Medications: None Surgeries: None Allergies: NKDA Social History: Tobacco: non smoker Alcohol: occasionally Drugs: marijuana occasionally Family History: Mother: HTN The history is provided by the patient and medical records. No language tutor was used. No current facility-administered medications for this encounter. Current Outpatient Medications Medication Sig Dispense Refill ??? albuterol 108 (90 Base) MCG/ACT Aerosol Solution take 2 Puffs by inhalation every 6 hours as needed for Cough. 1 Inhaler 0 ??? clonazePAM (KLONOPIN) 1 MG Tablet [...] file Occupational History ??? Not on file Social Needs ??? Financial resource strain: Not on file ??? Food insecurity: Worry: Not on file Inability: Not on file ??? Transportation needs: Medical: Not on file Non-medical: Not on file Tobacco Use ??? Smoking status: Never Smoker Substance and Sexual Activity ??? Alcohol use: Never Frequency: Never ??? Drug use: Not on file ??? Sexual activity: Not on file Lifestyle ??? Physical activity: Days per week: Not on file Minutes per session: Not on file ??? Stress: Not on file Relationships ??? Social connections: Talks on phone: Not on file Gets together: Not on file Attends moravian service: Not on file Active member of club or organization: Not on file Attends meetings of clubs or organizations: Not on file Relationship status: Not on file ??? Intimate partner violence: Fear of current or ex partner: Not on file Emotionally abused: Not on file Physically abused: Not on file Forced sexual activity: Not on file Other Topics Concern ??? Not on file Social History Narrative ??? Not on file BP 122/80 Pulse 65 Temp 98.7 ??F (37.1 ??C) (Tympanic) Resp 16 Ht 5' 10 (1.778 m) Wt 170lb (77.1 kg) SpO2 99% BMI 24.39 kg/m?? Review of Systems Constitutional: Negative for activity change, appetite change, chills, diaphoresis, fatigue and fever. HENT: Negative for dental problem, rhinorrhea and sore throat. Eyes: Negative for visual disturbance. Respiratory: Positive for shortness of breath. Negative for cough, chest tightness and wheezing. Cardiovascular: Positive for chest pain. Negative for palpitations and leg swelling. Gastrointestinal: Positive for vomiting. Negative for abdominal pain, constipation, diarrhea and nausea. Genitourinary: Negative for difficulty urinating, flank pain, hematuria and urgency. Musculoskeletal: Negative for arthralgias, back pain, myalgias, neck pain and neck stiffness. Skin: Negative for color change and rash. Allergic/Immunologic: Negative for food allergies. Neurological: Negative for dizziness, syncope, weakness, light-headedness, numbness and headaches. Psychiatric/Behavioral: Negative for self-injury, sleep disturbance and suicidal ideas. All other systems reviewed and are negative. Physical Exam Constitutional: He is oriented to person, place, and time. He appears well- developed and well-nourished. No distress. Body mass index is 24.39 kg/m??. The patient appears ill. HENT: Head: Normocephalic and atraumatic. Right Ear: External ear normal. Left Ear: External ear normal. Nose: Nose normal. Mouth/Throat: Oropharynx is clear and moist. No oropharyngeal exudate. Eyes: Pupils are equal, round, and reactive to light. Conjunctivae and EOM are normal. Right eye exhibits no discharge. Left eye exhibits no discharge. Neck: Normal range of motion. Neck supple. No JVD present. No tracheal deviation present. No thyromegaly present. Cardiovascular: Normal rate, regular rhythm, normal heart sounds and intact distal pulses. No murmur heard. Pulmonary/Chest: Effort normal and breath sounds normal. No respiratory distress. He has no wheezes. He has no rales. He exhibits no tenderness. Abdominal: Soft. Bowel sounds are normal. He exhibits no distension and no mass. There is abdominaltenderness in the epigastric area. There is no rebound and no guarding. Musculoskeletal: Normal range of motion. General: No tenderness or edema. Lymphadenopathy: He has no cervical adenopathy. Neurological: He is alert and oriented to person, place, and time. He has normal reflexes. No cranial nerve deficit. He exhibits normal muscle tone. Coordination normal. Skin: Skin is warm and dry. No rash noted. He is not diaphoretic. No erythema. No pallor. Psychiatric: He has a normal mood and affect. His behavior is normal. Thought content normal. Nursing note and vitals reviewed. Procedures MDM Labs Reviewed CMP (COMPREHENSIVE METABOLIC PANEL) - Abnormal; Notable for the following components: Result Value CHLORIDE 98 (*) CO2, VENOUS 20 (*) ANION GAP 22.6 (*) All other components within normal limits CBC WITH AUTO DIFFERENTIAL - Abnormal; Notable for the following components: RBC 5.96 (*) HEMOGLOBIN (HGB) 17.4 (*) HEMATOCRIT (HCT) 50.4 (*) RDW 11.6 (*) NEUTROPHILS 71.2 (*) ABSOLUTE NEUTROPHILS 8.22 (*) All other components within normal limits D-DIMER - Normal Narrative: The FDA has approved this method to exclude the diagnosis of DVT and/or PE at the cutoff value of <0.50 mcg/mL FEU. LACTATE DEHYDROGENASE (LD) - Normal COMPLETE BLOOD COUNT (CBC) WITH DIFF Narrative: The following orders were created for panel order Complete Blood Count (CBC) WITH Diff. Procedure Abnormality Status --------- ------ CBC with Auto Differential[[id number]] Abnormal Final result Please view results for these tests on the individual orders. EXTRA TUBES Narrative: The following orders were created for panel order Extra Tubes. Procedure Abnormality Status --------- ------ Gold Top Tube[[id number]] Final result Please view results for these tests on the individual orders. POCT INFLUENZA A & B GOLD TOP TUBE XR CHEST 2 VIEWS Final Result IMPRESSION: No acute cardiopulmonary abnormality. Complete Blood Count (CBC) WITH Diff Final Result CMP (Comprehensive Metabolic Panel) Final Result D-Dimer Final Result Lactate Dehydrogenase (LD) Serum Final Result Extra Tubes Final Result Reviewed: previous chart, nursing note and vitals Reviewed previous: labs Interpretation: labs and x-ray Clinical Impression 1. Acute viral bronchitis 2. Anxiety attack 20:03 At bedside for initial evaluation. 21:55 The patient remained stable throughout their ED stay. My clinical impression was discussed with thepatient/caregiver. Any labs and radiology results were reviewed. Questions were addressed as completely as possible given the information available at present. The therapeutic plan was discussed, inst ructions were given and the importance of primary care follow up was stressed and encouraged. The patient/caregiver voiced understanding of the plan, indications to return, and the need for follow up. New Medications: New Prescriptions ALBUTEROL 108 (90 BASE) MCG/ACT AEROSOL SOLUTION take 2 Puffs by inhalation every 6 hours as neededfor Cough. CLONAZEPAM (KLONOPIN) 1 MG TABLET Take 1 Tab by mouth nightly. I have advised the patient to follow-up with: [facility] [address] [address] In 1 week As needed Disposition: Discharge By signing my name below, [place], attest that this documentation has been prepared under thedirection and in the presence of Dr. Adrian MD. Electronically Signed: Massiel Islas. 09/21/19 10:05 PM Melody, Dr. campbell, personally performed the services described in this documentation. All medical record entries made by the scribe were at my direction and in my presence. I have reviewed the chart anddischarge instructions and agree that the record reflects my personal performance and is accurate and complete. Dr. campbell, 09/21/19 10:05 PM * Angi Palafox RN - 09/21/2019 8:[address] Campbell at bedside for assessment. * Simon Davis, SAMANTHA - 09/21/2019 8:00 PM CDT Flu swab obtained in triage * Simon Davis, RN - 09/21/2019 7:50 PM CDT Patient to ED with c/o chest pain and Sob for 6 days. Patient states he has had fevers on off during that time. Patient denies being around any sick. Patient also reports not eating or having a BM in6 days. Patient states it has been difficult for him to take a deep breath. Patient AOx4. Patient denies coughing. documented in this encounter Plan of Treatment Not on file documented as of this encounter Procedures Procedure Name Priority Date/Time Associated Diagnosis Comments XR CHEST 2 VIEWS STAT 09/21/2019 9:04 PM CDT EXTRA TUBES STAT 09/21/2019 8:23 PM CDT GOLD TOP TUBE STAT 09/21/2019 8:23 PM CDT CBC WITH AUTO DIFFERENTIAL STAT 09/21/2019 8:23 PM CDT LACTATE DEHYDROGENASE (LD) STAT 09/21/2019 8:23 PM CDT D-DIMER STAT 09/21/2019 8:23 PM CDT CMP (COMPREHENSIVE METABOLIC PANEL) STAT 09/21/2019 8:23 PM CDT COMPLETE BLOOD COUNT (CBC) WITH DIFF STAT 09/21/2019 8:23 PM CDT POCT INFLUENZA A & B STAT 09/21/2019 7:56 PM CDT documented in this encounter Results * XR CHEST 2 VIEWS (09/21/2019 9:04 PM CDT) Anatomical Region Laterality Modality Chest N/A Digital Radiogra phy 09/21/2019 9:44 PM CDT Impressions 09/21/2019 9:46 PM CDT IMPRESSION: ??No acute cardiopulmonary abnormality. Narrative 09/21/2019 9:46 PM CDT EXAM DESCRIPTION: ??XR CHEST 2 VIEWS REASON FOR STUDY: ??SOB TECHNIQUE: ??PA and lateral radiographic views of the chest acquired. COMPARISON: ??No prior study. FINDINGS: ??LUNGS/PLEURA: No focal consolidation or pneumothorax. No pleural effusion. HEART/MEDIASTINUM: Heart size is normal. Normal mediastinal and hilar contours. HARDWARE/LINES/TUBES: None. BONES: No acute findings. OTHER: No other significant finding. THIS IS AN ELECTRONICALLY VERIFIED FINAL REPORT 09/21/2019 9:44 PM - Electronically signed by Gautam Sharp RN: RN D: ??09/21/2019 9:44 PM T: ??09/21/2019 9:44 PM Report ID: [id number] Reading Location: ??[id number] Procedure Note Gautam Sharp MD - 09/21/2019 EXAM DESCRIPTION: XR CHEST 2 VIEWS REASON FOR STUDY: SOB TECHNIQUE: PA and lateral radiographic views of the chest acquired. COMPARISON: No prior study. FINDINGS: LUNGS/PLEURA: No focal consolidation or pneumothorax. No pleural effusion. HEART/MEDIASTINUM: Heart size is normal. Normal mediastinal and hilar contours. HARDWARE/LINES/TUBES: None. BONES: No acute findings. OTHER: No other significant finding. THIS IS AN ELECTRONICALLY VERIFIED FINAL REPORT 09/21/2019 9:44 PM - Electronically signed by Gautam Sharp RN: RN Report ID: [id number] Reading Location: [id number] IMPRESSION: No acute cardiopulmonary abnormality. Rom Campbell MD IMG DIAGNOSTIC ORDERABLES Final Result * Gold Top Tube (09/21/2019 8:23 PM CDT) Blood specimen (specimen) Venous Catheter (IV) / Unknown 09/21/2019 8:23 PM CDT 09/21/2019 8:46 PM CDT us Rashawn Huerta CHILDREN'S TUTOR NURSERY, RAIL DETECTOR CAR OPERATOR CHEMISTRY ORDERABLES Fi nal Result [facility] [address] [place] [address] * (ABNORMAL) CBC with Auto Differential (09/21/2019 8:23 PM CDT) WBC 11.55 4.00 - 12.00 10(3)/mcL 09/21/2019 8:[address] [facility] RBC 5.96(H) 4.40 - 5.80 10(6)/mcL 09/21/2019 8:[address] [facility] HEMOGLOBIN (HGB) 17.4(H) 13.0 - 16.5 g/dL 09/21/2019 8:49 PM CDT [facility] HEMATOCRIT (HCT) 50.4(H) 38.0 - 50.0 % 09/21/2019 8:[address] [facility] MCV 84.6 82.0 - 96.0 fL 09/21/2019 8:[address] [facility] MCH 29.2 26.0 - 32.0 pg 09/21/2019 8:[address] [facility] MCHC 34.5 31.0 - 36.0 g/dL 09/21/2019 8:[address] [facility] PLATELET COUNT 266 140 - 440 10(3)/mcL 09/21/2019 8:[address] [facility] RDW 11.6(L) 11.8 - 15.5 % 09/21/2019 8:[address] [facility] MPV 10.4 8.0 - 12.6 fL 09/21/2019 8:[address] [facility] NEUTROPHILS 71.2(H) 40.0 - 68.0 % 09/21/2019 8:[address] [facility] LYMPHOCYTES 21.5 19.0 - 49.0 % 09/21/2019 8:[address] [facility] MONOCYTES 6.5 3.0 - 13.0 % 09/21/2019 8:[address] [facility] EOSINOPHILS 0.5 0.0 - 8.0 % 09/21/2019 8:[address] [facility] BASOPHILS 0.3 0.0 - 1.0 % 09/21/2019 8:[address] [facility] ABSOLUTE NEUTROPHILS 8.22(H) 1.40 - 5.30 10(3)/[facility] 09/21/2019 8:[address] [facility] ABSOLUTE LYMPHOCYTES 2.48 0.90 - 3.30 10(3)/[facility] 09/21/2019 8:[address] [facility] ABSOLUTE MONOCYTES 0.75 0.10 - 0.90 10(3)/[facility] 09/21/2019 8:[address] [facility] ABSOLUTE EOSINOPHIL 0.06 0.00 - 0.50 10(3)/[facility] 09/21/2019 8:[address] [facility] ABSOLUTE BASOPHILS 0.04 0.00 - 0.10 10(3)/[facility] 09/21/2019 8:[address] [facility] NRBC PER 100 WBC 0 09/21/19 20 8:[address] [facility] Blood specimen (specimen) Venous Catheter (IV) / Unknown 09/21/2019 8:23 PM CDT 09/21/2019 8:45 PM CDT Rom Campbell MD HEMATOLOGY ORDERABLES Final Res ult Performing Organization Address [facility] Co de Phone Number [facility] [address] [place] [address] * Lactate Dehydrogenase (LD) Serum (09/21/2019 8:23 PM CDT) Pathologist [facility] LDH 163 135 - 225 U/L 09/21/2019 9:[address] [facility] Blood specimen (specimen) Venous Catheter (IV) / Unknown 09/21/2019 8:23 PM CDT 09/21/2019 8:45 PM CDT Rom Campbell MD CHEMISTRY ORDERABLES Final Resu lt Performing Organization Address [facility] de Phone Number [facility] [address] [place] [address] * D-Dimer (09/21/2019 8:23 PM CDT) Pathologist [facility] D DIMER <=0.27 <0.50 mcg/mL FEU 09/21/2019 8:[address] [facility] Blood specimen (specimen) Venous Catheter (IV) / Unknown 09/21/2019 8:23 PM CDT 09/21/2019 8:45 PM CDT Narrative [facility] - 09/21/2019 8:59 PM CDT The FDA has approved this method to exclude the diagnosis of DVT and/or PE at the cutoff value of <0.50 mcg/mL FEU. Rom Campbell MD HEMATOLOGY ORDERABLES Final Res ult Performing Organization Address [facility] Co de Phone Number [facility] [address] [place] [address] * (ABNORMAL) CMP (Comprehensive Metabolic Panel) (09/21/2019 8:23 PM CDT) SODIUM 137 136 - 144 mmol/L 09/21/2019 9:[address] [facility] POTASSIUM 3.6 3.5 - 5.1 mmol/L 09/21/2019 9:[address] [facility] CHLORIDE 98(L) 100 - 110 mmol/L 09/21/2019 9:[address] [facility] CO2, VENOUS 20(L) 22 - 32 mmol/L 09/21/2019 9:[address] [facility] ANION GAP 22.6(H) 8.0 - 20.0 mmol/L 09/21/2019 9:[address] [facility] GLUCOSE 79 70 - 99 mg/dL 09/21/2019 9:[address] [facility] BUN 17 6 - 20 mg/dL 09/21/2019 9:[address] [facility] CREATININE, BLOOD 0.91 0.80 - 1.30 mg/dL 09/21/2019 9:[address] [facility] BUN/CREATININE RATIO 19 12 - 20 ratio 09/21/2019 9:[address] [facility] TOTAL PROTEIN 7.9 6.0 - 8.3 g/dL 09/21/2019 9:[address] [facility] ALBUMIN 5.0 3.5 - 5.2 g/dL 09/21/2019 9:[address] [facility] Comment: The colormetric methods used for the determination of Albumin may lead to falsely elevated test results in patients suffering from renal failure or insufficiency due to interference with other proteins. A/G RATIO 1.7 1.0 - 2.0 09/21/2019 9:[address] [facility] CALCIUM 10.1 8.9 - 10.3 mg/dL 09/21/2019 9:[address] [facility] T BILI 0.7 <=1.2 mg/dL 09/21/2019 9:[address] [facility] SGOT (AST) 20 <=40 U/L 09/21/2019 9:[address] [facility] SGPT (ALT) 15 <=41 U/L 09/21/2019 9:[address] [facility] ALKALINE PHOSPHATASE 65 40 - 130 U/L 09/21/2019 9:[address] [facility] GFR, EST. NONAFRICAN >60 >=60 09/21/2019 9:[address] [facility] GFR, EST. >60 >=60 020 9:[address] [facility] Comment: Creatinine Clearance is the preferred criteria for selecting drug dose adjustments in renally impaired patients. ??The GFR is provided as additional pertinent clinical information. GFR is reported in mL/min/1.73 sq m. Blood specimen (specimen) Venous Catheter (IV) / Unknown 09/21/2019 8:23 PM CDT 09/21/2019 8:45 PM CDT Rom Campbell MD CHEMISTRY ORDERABLES Final Resu lt [facility] [address] [place] [address] * POCT Influenza A & B (09/21/2019 7:56 PM CDT) POC INFLU A Presumptive negative Group A POC INFLU B Presumptive negative Group B POC INFLUENZA CONTROL Contact Center Representative Pass 09/21/2019 7:56 PM CDT Rom Campbell MD POINT OF CARE TESTING (MANUAL) Final Result documented in this encounter Visit Diagnoses Diagnosis Acute viral bronchitis- Primary Acute bronchitis Anxiety attack Panic disorder without agoraphobia documented in this encounter Administered Medications Inactive Administered Medications - up to 3 most recent administrations Medication Order MAR Action Action Date Dose Rate Site 0.9 % sodium chloride solution at 1,000 mL/hr, Intravenous, ONCE, 1 dose, On 09/21/19 at 2029 New Bag 09/21/2019 8:38 PM CDT 1,000 mL 1000 mL/ hr documented in this encounter Active and Recently Administered Medications Times are shown in CDT. Scheduled Medication Order 09/19/2019 09/20/2019 09/21/2019 0.9 % sodium chloride solution (COMPLETED) at 1,000 mL/hr, Intravenous, ONCE, 1 dose, On 09/21/19 at 2029 2037 (New Bag - Prov ider: Simon Davis RN)[id number] (Stopped - Provider: Robin Smith RN) documented in this encounter Care Teams Surgical Instrument Technician Relationship Specialty Start Date End Date Provider, None [place] PCP - General 11/14/16 documented as of this encounter
--- OUTSIDE RECORDS SUMMARY | 2024-06-02 00:34 | XMS_ITS | Encounter Summary ---
Author Organization [facility] Address [address] [place] [address] Phone Care Team Providers Care Heavy Mobile Equipment Repairer Name Role Phone Provider, None Primary Care Provider Unavailabl e Reason for Visit * Reason Comments Arm Swelling Encounter Details Date Type Department Care Team ([facility] st Contact Info) Description 05/31/2021 6:13 PM BREEDING TECHNICIAN - 05/31/2021 7:25 PM BREEDING TECHNICIAN Emergency [facility] Emergency [address] [place] [address] Eran Whipple, PAC [address] [place] [address] Left arm pain Discharge Disposition: Discharged to home or Selfcare [...] COVID-19? No / Unsure 05/31/2021 6:07 PM BREEDING TECHNICIAN documented as of this encounter Last Filed Vital Signs Vital Sign Reading Time Taken Comments Blood Pressure 140/84 05/31/2021 7:14 PM BREEDING TECHNICIAN Pulse 99 05/31/2021 7:14 PM BREEDING TECHNICIAN Temperature 36.4 ??C (97.6 ??F) 05/31/2021 6:10 PM CS T Respiratory Rate 18 05/31/2021 7:14 PM BREEDING TECHNICIAN Oxygen Saturation 99% 05/31/2021 7:14 PM BREEDING TECHNICIAN Inhaled Oxygen Concentration - - Weight 69.9 kg (154 lb) 05/31/2021 6:10 PM BREEDING TECHNICIAN Height 175.3 cm (5' 9 ) 05/31/2021 6:10 PM BREEDING TECHNICIAN Body Mass Index 22.74 05/31/2021 6:10 PM BREEDING TECHNICIAN documented in this encounter Discharge Instructions * Discharge Instructions* Eran Whipple PAC - 05/31/2021 7:03 PM BREEDING TECHNICIAN Rest and elevate the arm as much as possible. Wrap the arm and warm tunnels/compresses. [id number] anti-inflammatory may be taken per label with food. Follow-up closely with your doctor, or thegroup assigned. Please return to the emergency room if worsening uncontrolled pain or swelling to the limb, if your arm is turning a different color/pale, if you cannot feel your arm or are having significant numbness or difficulty using the arm, if your arm feels like it is becoming very hard, if chest pain or shortness of breath, or if further concern. DING TECHNICIAN * Attachments The following attachments cannot be sent through Care Everywhere. * IV Infiltration [id number] (Mauritanian) documented in this encounter Medications at Time [...] of this encounter ED Notes * Kate Smith RN - 05/31/2021 7:15 PM CST Patient discharged. Discharge instructions and patient educational material reviewed with patient; questions and concerns addressed; patient verbalizes understanding, using teach back.Patient discharged per ambulatory mode with self as responsible libertarian. DING TECHNICIAN * Eran Whipple, PAC - 05/31/2021 7:02 PM CST Chief Complaint Patient presents with ??? Arm Swelling HPI Patient presents ambulatory to the emergency room through triage complaining of mild pain and swelling to left upper arm at the biceps region which started at approximately 3:30 p.m. after he donatedplasma. He suspects potential IV infiltration error. States that over the past 2-3 hours, the swelling has already started to improve on its own. He denies the biceps region being hard, rather it is squishy and compressible. He denies color or temperature change in the extremity. He denies numbnessdistally or inability to move the arm. He denies chest pain or shortness of breath. No medication prior to arrival. No current facility-administered medications for this encounter. [...] ??? Alcohol use: Never ??? Drug use: Not on file ??? Sexual activity: Not on file Other Topics Concern ??? Not on file Social History Narrative ??? Not on file Social Determinants of Health Social determinant risk not applicable to this patient. BP (!) 143/92 Pulse 99 Temp 97.6 ??F (36.4 ??C) (Tympanic) Resp 20 Ht 5' 9 (1.753 m) Wt 154 lb (69.9 kg) SpO2 99% BMI 22.74 kg/m?? Review of Systems Constitutional: Negative for activity change, appetite change and fever. HENT: Negative. Eyes: Negative. Respiratory: Negative for chest tightness and shortness of breath. Cardiovascular: Negative for chest pain and leg swelling. Gastrointestinal: Negative for abdominal pain. Musculoskeletal: Negative for joint swelling. Left upper arm pain/edema Skin: Negative for color change and rash. Neurological: Negative for numbness. Hematological: Negative for adenopathy. Psychiatric/Behavioral: Negative for behavioral problems. Physical Exam Vitals and nursing note reviewed. Exam conducted with a pig caster present. Constitutional: General: He is not in acute distress. Appearance: Normal appearance. He is normal weight. He is not ill-appearing, toxic-appearing or diaphoretic. HENT: Head: Normocephalic and atraumatic. Right Ear: External ear normal. Left Ear: External ear normal. Nose: Nose normal. Mouth/Throat: Mouth: Mucous membranes are moist. Pharynx: Oropharynx is clear. Eyes: Extraocular Movements: Extraocular movements intact. Conjunctiva/sclera: Conjunctivae normal. Pupils: Pupils are equal, round, and reactive to light. Cardiovascular: Rate and Rhythm: Normal rate and regular rhythm. Pulses: Normal pulses. Heart sounds: Normal heart sounds. Pulmonary: Effort: Pulmonary effort is normal. Breath sounds: Normal breath sounds. Comments: Denies pleuritic pain during exam Abdominal: General: Abdomen is flat. Bowel sounds are normal. Palpations: Abdomen is soft. Musculoskeletal: General: Swelling and tenderness present. Normal range of motion. Cervical back: Normal range of motion and neck supple. Comments: Mild edema tenderness noted to left upper arm at the biceps. Normal color and temperatureof the arm. No pallor, penis, region, erythema noted to the arm. Strong distal pulses including brachial and radial pulses, 4+. All compartments of the left arm are soft and compressible. Patient does not appear to be in severe pain. He is moving the arm at all joints symmetrically and without difficulty. No concern for compartment syndrome. No ischemic limb noted. Skin: General: Skin is warm and dry. Capillary Refill: Capillary refill takes less than 2 seconds. Findings: No rash. Neurological: General: No focal deficit present. Mental Status: He is alert and oriented to person, place, and time. Cranial Nerves: No cranial nerve deficit. Sensory: No sensory deficit. Motor: No weakness. Coordination: Coordination normal. Gait: Gait normal. Psychiatric: Mood and Affect: Mood normal. Behavior: Behavior normal. Thought Content: Thought content normal. Judgment: Judgment normal. Procedures Imaging Results None Labs Reviewed - No data to display MDM 7:07 p.m.-patient is stable. Extremity/vascular exam as noted. No signs of compartment syndrome. DVT unlikely. Patient likely had complication due to IV infiltration. However he states that it is already improving, and does not appear to be significantly edematous. Will discharge home with rice instruction. Return precautions to the ED given, patient was understanding. Coding Clinical Impression 1. Left arm pain 2. Intravenous infiltration, initial encounter Cosigned by Ila Cody MD at 06/01/2021 4:22 AM BREEDING TECHNICIAN DING TECHNICIAN DING TECHNICIAN Associated attestation - Ila Cody MD - 06/01/2021 4:22 AM BREEDING TECHNICIAN I collaborated in the care of this patient with the AUTO SUSPENSION AND STEERING MECHANIC/PA. I did not personally examine this patient. I agree with the AUTO SUSPENSION AND STEERING MECHANIC/PA???s findings and defer to the attached note. I have the following additions/revisions: * Elma Chandra RN - 05/31/2021 6:07 PM CST Pt here for L upper arm swelling s/p donating plasma earlier today at 1500. Swelling noted to L bicep, pms intact, nontender to palpation. DING TECHNICIAN documented in this encounter Plan of Treatment Not on file documented as of this encounter Visit Diagnoses Diagnosis Left arm pain- Primary Pain in limb Intravenous infiltration, initial encounter documented in this encounter Care Teams Heavy Mobile Equipment Repairer Relationship Specialty Start Date End Date Provider, None [place] PCP - General 11/14/16 documented as of this encounter
--- OUTSIDE RECORDS SUMMARY | 2024-06-02 00:34 | XMS_ITS | Encounter Summary ---
Author Organization [facility] Address [address] [place] [address] Phone Care Team Providers Care Hydroelectric Plant Electrical Engineer Name Role Phone Provider, None Primary Care Provider Unavailabl e Reason for Visit * Reason Comments Shortness of Breath Encounter Details Date Type Department Care Team ([facility] st Contact Info) Description 10/04/2019 10:49 PM CDT - 10/04/2019 11:28 PM CDT Emergency [facility] Emergency [address] [place] [address] Dane Radford MD [address] [place] [address] Chest wall pain Discharge Disposition: Discharged to home or [...] have Coronavirus / COVID-19? No / Unsure 10/04/2019 10:44 PM CDT documented as of this encounter Last Filed Vital Signs Vital Sign Reading Time Taken Comments Blood Pressure 124/76 10/04/2019 11:15 PM CDT Pulse 70 10/04/2019 11:15 PM CDT Temperature 36.7 ??C (98 ??F) 10/04/2019 10:51 PM CDT Respiratory Rate 16 10/04/2019 10:48 PM CDT Oxygen Saturation 98% 10/04/2019 11:15 PM CDT Inhaled Oxygen Concentration - - Weight 77.1 kg (170 lb) 10/04/2019 10:48 PM CDT Height 177.8 cm (5' 10 ) 10/04/2019 10:48 PM CDT Body Mass Index 24.39 10/04/2019 10:48 PM CDT documented in this encounter Discharge Instructions * Discharge Instructions* Dane Radford - 10/04/2019 11:18 PM CDT MAY USE 3 200 MG IBUPROFEN 3 TIMES DAILY FOR BASELINE PAIN CONTROL. MAY ADD 2 TYLENOL 3 TIMES DAILYFOR ADDITIONAL PAIN RELIEF. ACTIVITY AND DIET TOLERATED. SUGGEST FINE PRIMARY PHYSICIAN FOR ONGOING MANAGEMENT. documented in this encounter Medications at Time [...] as of this encounter ED Notes * Kimberly Soto RN - 10/04/2019 11:22 PM CDT D/c instructions given to pt, he states he understands and has no questions. Pt is ambulatory out with steady gait, no distress. * Dane Radford - 10/04/2019 11:15 PM CDT Chief Complaint Patient presents with ??? Shortness of Breath Dylan Nassar is a 23 y.o. male TO THE EMERGENCY DEPARTMENT SUNDAY EVENING AROUND 11:00 P.M. OCTOBER 04, 2019 WITH COMPLAINT OF CHEST WALL PAIN AND TIGHTNESS IN HIS CHEST WHEN HE TAKES A DEEP BREATH SINCE EARLIER TODAY. TO THE EMERGENCY DEPARTMENT DIAGNOSED WITH ANXIETY ATTACK EARLIER THIS MONTH. 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 HAD NOT TAKING ANYTHING FOR PAIN TODAY PRIOR TO COMING IN. WORSE WITH MOVEMENT OF CHEST WALL AND DEEP BREATHING. NO FEVER CHILLS NAUSEA VOMITING DIARRHEA. NO COUGH. NO TOBACCO USE. NO OTHER ACUTE COMPLAINTS. HERE FOR FURTHER EVALUATION MANAGEMENT. The history is provided by medical records and the patient. Shortness of Breath Associated symptoms: no abdominal pain, no chest pain, no cough, no fever, no headaches, no rash, no sore throat and no vomiting No current facility-administered medications for this encounter. [...] file Gets together: Not on file Attends mormonism service: Not on file Active member of [...] History Narrative ??? Not on file BP 145/70 Pulse 69 Temp 98 ??F (36.7 ??C) (Tympanic) Resp 16 Ht 5' 10 (1.778 m) Wt 170 lb (77.1 kg) SpO2 98% BMI 24.39 kg/m?? Review of Systems Constitutional: Negative for activity change and fever. HENT: Negative for congestion, hearing loss, rhinorrhea and sore throat. Eyes: Negative for visual disturbance. Respiratory: Negative for cough and shortness of breath. Cardiovascular: Negative for chest pain. CHEST WALL PAIN Gastrointestinal: Negative for abdominal pain, diarrhea, nausea and vomiting. Genitourinary: Negative for decreased urine volume and dysuria. Musculoskeletal: Negative for myalgias. Skin: Negative for rash. Neurological: Negative for dizziness, weakness, light-headedness and headaches. Psychiatric/Behavioral: Negative for confusion. All other systems reviewed and are negative. Physical Exam Vitals signs and nursing note reviewed. Constitutional: General: He is not in acute distress. Appearance: He is well-developed and normal weight. He is not ill-appearing, toxic-appearing or diaphoretic. HENT: Head: Normocephalic and atraumatic. Nose: Nose normal. Mouth/Throat: Mouth: Mucous membranes are moist. Pharynx: Oropharynx is clear. Eyes: General: No scleral icterus. Right eye: No discharge. Left eye: No discharge. Extraocular Movements: Extraocular movements intact. Conjunctiva/sclera: Conjunctivae normal. Pupils: Pupils are equal, round, and reactive to light. Neck: Musculoskeletal: Normal range of motion and neck supple. Trachea: No tracheal deviation. Cardiovascular: Rate and Rhythm: Normal rate and regular rhythm. Heart sounds: Normal heart sounds. No murmur. No friction rub. No gallop. Pulmonary: Effort: Pulmonary effort is normal. No respiratory distress. Breath sounds: Normal breath sounds. No stridor. No decreased breath sounds, wheezing, rhonchi or rales. Chest: Chest wall: Tenderness (BILATERAL LATERAL) present. Abdominal: General: Bowel sounds are normal. There is no distension. Palpations: Abdomen is soft. Tenderness: There is no abdominal tenderness. There is no guarding or rebound. Musculoskeletal: Normal range of motion. General: No tenderness. Lymphadenopathy: Cervical: No cervical adenopathy. Skin: General: Skin is warm and dry. Capillary Refill: Capillary refill takes less than 2 seconds. Coloration: Skin is not pale. Findings: No erythema or rash. Neurological: General: No focal deficit present. Mental Status: He is alert and oriented to person, place, and time. Cranial Nerves: No cranial nerve deficit. Psychiatric: Behavior: Behavior normal. Thought Content: Thought content normal. Judgment: Judgment normal. Procedures Imaging Results None MDM Coding DX: CHEST WALL PAIN * Kimberly Soto RN - 10/04/2019 10:59 PM CDT Pt is ambulatory with steady gait to room 1 with no obvious distress. Pt denies fever, cough. States he was recently dx wit bronchitis and states that sob is back. Pt used his albuterol an hour ago. Speaks in full clear sentences. Pt lungs clear in all cuevas. * Robin Smith RN - 10/04/2019 10:47 PM CDT Pt to triage with c/o tightness in chest when he takes a deep breath. States that this has been ongoing since 09/20 when he was seen last. He had felt better, but when he woke up sx were back like they were before, minus sharp chest pain. documented in this encounter Plan of Treatment Not on file documented as of this encounter Visit Diagnoses Diagnosis Chest wall pain- Primary Painful respiration documented in this encounter Administered Medications Inactive Administered Medications - up to 3 most recent administrations Medication Order MAR Action Action Date Dose Rate Site acetaminophen (TYLENOL) tablet 650 mg 650 mg, Oral, ONCE, 1 dose, On 10/05/19 at 0000, Maximum dose of acetaminophen is 4000 mg from all sources in 24 hours. Given 10/04/2019 11:25 PM CDT 650 mg ibuprofen (MOTRIN) tablet 800 mg 800 mg, Oral, ONCE, 1 dose, On 10/05/19 at 0000 Given 10/04/2019 11:25 PM CDT 800 mg documented in this encounter Active and Recently Administered Medications Times are shown in CDT. Scheduled Medication Order 10/02/2019 10/03/2019 10/04/2019 acetaminophen (TYLENOL) tablet 650 mg (COMPLETED) 650 mg, Oral, ONCE, 1 dose, On 10/05/19 at 0000, Maximum dose of acetaminophen is 4000 mg from all sources in 24 hours. 2325 (Given - Provid er: Kimberly Soto RN) ibuprofen (MOTRIN) tablet 800 mg (COMPLETED) 800 mg, Oral, ONCE, 1 dose, On 10/05/19 at 0000 2325 (Given - Provid er: Kimberly Soto RN) documented in this encounter Care Teams Hydroelectric Plant Electrical Engineer Relationship Specialty Start Date End Date Provider, None [place] PCP - General 11/14/16 documented as of this encounter
--- OUTSIDE RECORDS SUMMARY | 2024-06-02 00:34 | XMS_ITS | Encounter Summary ---
Author Organization [facility] Care Team Providers Care Insurance Administrative Assistant Name Role Phone Provider, None Primary Care Provider Unavailabl e Encounter Details Date Type Department Care Team (Latest Contact Info) Description 10/04/2019 Travel Social History Tobacco Use Types Packs/Day [...] PM CDT documented as of this encounter Plan of Treatment Not on file documented as of this encounter Visit Diagnoses Not on filedocumented in this encounter Care Teams Insurance Administrative Assistant Relationship Specialty Start Date End Date Provider, [place] PCP - General 11/14/16 documented as of this encounter
--- OUTSIDE RECORDS SUMMARY | 2024-06-02 00:34 | XMS_ITS | Encounter Summary ---
Author Organization [facility] Care Team Providers Care Director Oncology Name Role Phone Provider, None Primary Care Provider Unavailabl e Encounter Details Date Type Department Care Team (Latest Contact Info) Description 09/21/2019 Travel Social History Tobacco Use Types Packs/Day [...] PM CDT documented as of this encounter Functional Status documented as of this encounter Plan of Treatment Not on file documented as of this encounter Visit Diagnoses Not on filedocumented in this encounter Care Teams Director Oncology Relationship Specialty Start Date End Date Provider, None [place] PCP - General 11/14/16 documented as of this encounter
--- OUTSIDE RECORDS SUMMARY | 2024-06-02 00:34 | XMS_ITS | Clinical Summary ---
Author Organization [facility] Address [address] [place] [address] Phone Care Team Providers Care Inspector Hot Forgings Name Role Phone Provider, None Primary Care Provider Unavailabl e Allergies No known active allergies Medications ondansetron (ZOFRAN ODT) 4 MG TABLET DISPERSIBLE Take 1 Tab by mouth every 4 hours as needed for Nausea. 25 Tab 0 7 Active clonazePAM (KLONOPIN) 1 MG Tablet Take 1 Tab by mouth nightly. 10 Tab 0 Active albuterol 108 (90 Base) MCG/ACT Aerosol Solution take 2 Puffs by inhalation every 6 hours as needed for Cough. 1 Inhaler 0 Active Social History Tobacco Use Types Packs/Day Years [...] on file Sexual Orientation Not on file Last Filed Vital Signs Vital Sign Reading Time Taken Comments Blood Pressure 103/67 08/01/2021 2:41 PM AUTOMATIC DRY STARCH OPERATOR Pulse 76 08/01/2021 2:41 PM AUTOMATIC DRY STARCH OPERATOR Temperature 37.8 ??C (100 ??F) 08/01/2021 2:41 PM AUTOMATIC DRY STARCH OPERATOR Respiratory Rate 18 08/01/2021 2:41 PM AUTOMATIC DRY STARCH OPERATOR Oxygen Saturation 97% 08/01/2021 2:41 PM AUTOMATIC DRY STARCH OPERATOR Inhaled Oxygen Concentration - - Weight 68 kg (150 lb) 08/01/2021 2:41 PM AUTOMATIC DRY STARCH OPERATOR Height 177.8 cm (5' 10 ) 08/01/2021 2:41 PM AUTOMATIC DRY STARCH OPERATOR Body Mass Index 21.52 08/01/2021 2:41 PM AUTOMATIC DRY STARCH OPERATOR Plan of Treatment Health Maintenance Due Date Last Done Comments Hepatitis C Virus (HCV) Screening 1993 TdaP Immunization 1993 Hepatitis B Immunization (1 of 3 - 19+ 3-dose series) 2012 Influenza Immunization (#1) 2024 SARS-COV-2 Immunization (2023- season) 2024 Respiratory Syncytial Virus (RSV) Immunization (Adult) (1 - 1-dose 75+ series) 2068 Meningococcal Immunization (ACWY) Aged Out No longer eligible based on patient's age to complete this topic Pneumococcal Immunization Combined Aged Out No longer eligible based on patient's age to complete this topic Rotavirus Immunization Aged Out No lo nger eligible based on patient's age to complete this topic Insurance [facility] [place] [id number] MEDICAID [place] Care Teams Inspector Hot Forgings Relationship Specialty Start Date End Date Provider, None [place] PCP - General 11/14/16
== END 2024-05-26 09:40 | disposition home or self-care (01) ==
PROVIDERS: Emergency Provider Nurse Practitioner Family
DX: K04.7 Periapical abscess without sinus (principal); Z87.891 Personal history of nicotine dependence; F12.90 Cannabis use, unspecified, uncomplicated
CPT/HCPCS: 99213; G0463

== ENCOUNTER 2024-07-09 11:32 | Emergency (ER) | payer BC, SELFPAY ==
[2024-07-09 11:36] VITALS: BP 138/97; PULSE 79; RESP 18; TEMP 37.1; O2SAT 99
[2024-07-09 11:59] LABS: EDCOVIDSCREEN Negative (Negative); EDINFLUASCREEN Negative (Negative); EDINFLUBSCREEN Negative (Negative)
--- OUTSIDE RECORDS SUMMARY | 2024-07-09 12:55 | XMS_ITS | Clinical Summary ---
Author Organization [facility] Address [address] [place] [address] Phone Care Team Providers Care Sr Vice President Name Role Phone Provider, None Primary Care [...] Comments Blood Pressure 103/67 08/01/2021 2:41 PM SINTERING PLANT SUPERVISOR Pulse 76 08/01/2021 2:41 PM SINTERING PLANT SUPERVISOR Temperature 37.8 ??C (100 ??F) 08/01/2021 2:41 PM SINTERING PLANT SUPERVISOR Respiratory Rate 18 08/01/2021 2:41 PM SINTERING PLANT SUPERVISOR Oxygen Saturation 97% 08/01/2021 2:41 PM SINTERING PLANT SUPERVISOR Inhaled Oxygen Concentration - - Weight 68 kg (150 lb) 08/01/2021 2:41 PM SINTERING PLANT SUPERVISOR Height 177.8 cm (5' 10 ) 08/01/2021 2:41 PM SINTERING PLANT SUPERVISOR Body Mass Index 21.52 08/01/2021 2:41 PM SINTERING PLANT SUPERVISOR Plan of Treatment Health Maintenance Due Date [...] patient's age to complete this topic Insurance [facility] [place] [id number] MEDICAID [place] Care Teams Sr Vice President Relationship Specialty Start Date End Date Provider, None [place] PCP - General 11/14/16
--- NOTE | 2024-07-09 12:57 | ED.URI ---
HPI - URI/Sore Throat General Chief Complaint: Upper Respiratory Infection Stated Complaint: fever/headache Time Seen by Provider: 07/09/24 12:45 Source: patient, RN notes reviewed and old records reviewed Mode of arrival: ambulatory Limitations: no limitations History of Present Illness HPI Narrative: 28 year old female who presents to [facility] care with complaints of awakening at 5am with headache and feeling feverish and he called off work due to illness and needs a work note, Patient reports that he did take some Tylenol for his fever and discomfort. Patient denies any acute cough or congestion or any sore throat. MD elicited complaint: fever and other (headache) Onset (ago): hour(s) (0500) Pain scale (0-10): 4 Able to tolerate fluids by mouth: Yes Treatments prior to arrival: acetaminophen Related Data Allergies Allergy/AdvReac Type Severity Reaction Status Date / Time No Known Allergies Allergy Verified 07/09/24 11:39 Review of Systems Review of Systems: CONSTITUTIONAL: Reports malaise, chills, sweats, felt feverish EYES: Denies visual changes, redness, or discharge. ENT: Reports rhinorrhea, congestion,no sinus pain, no otalgia and no sore throat. CARDIOVASCULAR: Denies chest pain, palpitations, or edema. RESPIRATORY: Reports no cough.? Denies dyspnea. GASTROINTESTINAL: Denies abdominal pain, nausea, vomiting, diarrhea SKIN: Denies rash or itching. MUSCULOSKELETAL: Denies myalgia. NEUROLOGIC:Reports headache. All systems reviewed & are unremarkable except as noted in HPI and below PMFSH Past Medical History Medical History No significant past medical history Surgical History Surgical History No significant past surgical history Family History Family History Father Unknown family medical history Mother Hypertension Social History Social History (Updated 07/10/24 @ 19:25 by Gemini Balbuena NP) Smoking status: Former smoker Tobacco type: cigarettes Second hand tobacco smoke exposure: No Smoking end date: 11/09/09 Alcohol intake: current Substance use: former Substance use type: marijuana Last use: no longer smokes marijuana Living arrangements: with family Gender identity (if verbalized by the patient): Male Comments At time of signature, agree with nursing past medical, surgical, social and family history. There is no relevant family history pertinent to the presenting complaint Exam Narrative: GENERAL: Well-appearing, well-nourished, and in no acute distress. HEAD: Normocephalic EYES: PERRLA, conjunctivae clear ENT: Nares clear, turbinates edematous and erythematous, clear discharge. Mucous membranes moist. TM pearly wren with dull light reflex bilaterally; no tragal tenderness. Oropharynx erythematous without lesions. Tonsils not enlarged and without exudate, no drooling, no hoarseness, no trismus, uvula midline.post nasal drainage NECK: Supple. No lymphadenopathy CHEST: Clear to auscultation, breath sounds equal. No wheezing, rhonchi, rales, or stridor. No respiratory distress, speaks in full sentences.no cough noted SAO2 99% on room air HEART: Regular rate and rhythm. No murmur heard. SKIN: Warm, dry, no rash. NEURO: Alert and oriented x3. PSYCH: Normal mood and affect Course Course Emergency Course: Patient is aware of diagnosis, understands and agrees to treatment plan.? Anticipatory guidance given.? Patient agrees to follow-up as directed and is aware of reasons to seek care at the emergency department. Portions of this record may have been created with voice recognition software Level of Care: Express Care Visit Vital Signs Vital signs: Vital Signs Temperature 37.1 C 07/09/24 11:36 Pulse Rate 79 07/09/24 11:36 Respiratory Rate 18 07/09/24 11:36 Blood Pressure 138/97 H 07/09/24 11:36 Pulse Oximetry 07/09/24 11:36 Oxygen Delivery Room Air 07/09/24 11:36 Temperature 37.1 C 07/09/24 11:36 Pulse Rate 79 07/09/24 11:36 Respiratory Rate 18 07/09/24 11:36 Blood Pressure 138/97 H 07/09/24 11:36 Pulse Oximetry 07/09/24 11:36 Oxygen Delivery Room Air 07/09/24 11:36 Reviewed MDM - URI/Sore Throat MDM Narrative Medical decision making narrative: Differential diagnosis considered: Wilkerson virus, strep pharyngitis, allergic rhinitis, upper respiratory tract infection, sinusitis, rhinosinusitis, nasopharyngitis. viral pharyngitis, otitis media, otitis externa, pneumonia, bronchitis, viral cough syndrome, viral syndrome, and influenza.? Exam findings show no acute concerns or changes; patient is non-toxic appearing and is in no distress.? Patient is appropriate for outpatient treatment and follow-up. Differential Diagnosis Differential diagnosis: Likely upper respiratory infection, viral infection, influenza and other (COVID) Medical Records Attestation: I reviewed the patient's medical records. Lab Data Attestation: I reviewed the patient's lab results. Lab results narrative: Influenza A negative, Influenza B negative, COVID antigen negative Labs: Lab Results 07/09/24 Range/Units 11:56 POC Influenza A Ag Negative (Negative) POC Influenza B Ag Negative (Negative) POC SARS CoV-2 Ag Negative (Negative) Critical Care Time Critical Care Time Critical Care Time: No Discharge Plan Discharge Clinical Impression: Upper respiratory infection Qualifiers: URI type: unspecified URI Qualified Code(s): J06.9 - Acute upper respiratory infection, unspecified Headache Qualifiers: Headache type: unspecified Headache chronicity pattern: acute headache Intractability: not intractable Qualified Code(s): R51.9 - Headache, unspecified Patient Disposition: Home, Self-Care Condition: Stable Instructions: Upper Respiratory Infection (ED), Acute Headache (ED) Additional Instructions: Increase fluids especially juices and water Ojjh-flp-[id number] cough and cold medicine of your choice for your symptoms Tylenol or ibuprofen for any fever pain Zyrtec Claritin or Cierra daily include Coricidin brand decongestant heat to the face 20-30 minutes 4-6 times a day for pain Salt water gargles, throat lozenges or throat sprays as desired Recommend Delsym cough syrup if any cough noted If your symptoms persist, change or worsen significantly before you can contact your personal physician then please, without delay, go to the emergency department for further evaluation. Follow-up with PCP in 7-10 days or sooner if needed Follow up with PCP soon in regards to your blood pressure which is elevated above threshold for referral. Blood pressure above 120/80 may indicate pre-hypertension. 138/97 Retest for COVID tomorrow Patient Language: [place] Prescriptions: New (DME) BinaxNOW COVD Ag Card Home Tst Kit See Rx Instructions .Route Qty: 1 0RF Rx Instructions: As directed Follow-up/Referrals: PHYSICIAN,RETAIL KEY HOLDER [Primary Care Provider] - Stand Alone Forms: Work/School Release IP Time of Disposition: 13:10 Quality [place] Coma Scale Eyes: Open Verbal: Oriented and Alert Motor: Follows Commands Jil Coma Total Score: 15
== END 2024-07-09 13:21 | disposition home or self-care (01) ==
PROVIDERS: Emergency Provider Registered Nurse
DX: J06.9 Acute upper respiratory infection, unspecified (principal); R51.9 Headache, unspecified; Z20.822 Contact with and (suspected) exposure to COVID-19; Z87.891 Personal history of nicotine dependence
CPT/HCPCS: 87426; 87804; 99213; G0463

== ENCOUNTER 2024-09-10 10:15 | Emergency (ER) | payer BC, SELFPAY ==
[2024-09-10 10:29] VITALS: BP 135/82; PULSE 77; RESP 16; TEMP 36.8; O2SAT 97
--- NOTE | 2024-09-10 10:50 | ED.SKABFB ---
HPI - Skin/Abscess/Foreign Bdy General Chief complaint: Skin/Abscess/Foreign Body Stated complaint: chest congestion Source: patient Mode of arrival: ambulatory Limitations: no limitations History of Present Illness HPI narrative: 28-year-old male presented for complaint of a right leg wound for 3 days in addition to a red itchy rash to the torso for about 2 weeks. Says the rash started on the mid upper abdomen and has spread. Says the wound on the right leg was a infected hair which he popped with his hands, since then has become more red and painful. The rash to torso is occasionally itchy, says it flares when he is working. Denies lip, tongue, or throat swelling, shortness of breath or wheezing. Denies changes to soap, detergent, lotion, or any other exposures. No one else in the house or any contacts with similar symptoms. no treatment for symptoms. Related Data Allergies Allergy/AdvReac Type Severity Reaction Status Date / Time No Known Allergies Allergy Verified 09/10/24 10:39 Review of Systems Review of Systems: CONSTITUTIONAL: Denies body aches, fever, chills, or sweats. EYES: Denies visual changes, redness, or discharge. ENT: Denies rhinorrhea, congestion CARDIOVASCULAR: Denies chest pain, palpitations, or edema. RESPIRATORY: Denies cough or dyspnea. GASTROINTESTINAL: Denies abdominal pain, nausea, vomiting, or diarrhea. SKIN: reports rash and right leg wound MUSCULOSKELETAL: Denies back pain, joint pain, or myalgia. NEUROLOGIC: Denies headache, numbness, tingling, or weakness. PMFSH Past Medical History Medical History No significant past medical history Surgical History Surgical History No significant past surgical history Family History Family History Father Unknown family medical history Mother Hypertension Social History Social History (Updated 07/10/24 @ 19:25 by Gemini Balbuena NP) Smoking status: Former smoker Tobacco type: cigarettes Second hand tobacco smoke exposure: No Smoking end date: 11/09/09 Alcohol intake: current Substance use: former Substance use type: marijuana Last use: no longer smokes marijuana Living arrangements: with family Gender identity (if verbalized by the patient): Male Comments At time of signature, I have reviewed and agree with nursing past medical, surgical, social and family history unless otherwise noted. Please see nursing chart for further information. There is no relevant family history pertinent to the presenting complaint Exam Narrative: GENERAL: Well-appearing EYES: conjunctivae clear, and EOMI. ENT: Mucous membranes moist. Oropharynx without edema, erythema or lesions. NECK: Supple. No lymphadenopathy CHEST: Clear to auscultation. HEART: Regular rate and rhythm. SKIN: Warm, dry. Scattered erythematous oval raised dry slightly raised lesions to torso, few scattered to arms most c/w pityriasis rosea. right medial lower leg with 10cm area of induration, with a firm red scabbed center 1cm, no fluctuance or active drainage. Warm, mildly tender. NEURO: Alert and oriented x3. Course Course Emergency Course: Patient is aware of diagnosis, understands and agrees to treatment plan. Anticipatory guidance given. Patient agrees to follow-up as directed and is aware of reasons to seek care at the emergency department. Portions of this record may have been created with voice recognition software Level of Care: Express Care Visit Vital Signs Vital signs: Vital Signs Temperature 98.3 F 09/10/24 10:29 Pulse Rate 77 09/10/24 10:29 Respiratory Rate 16 09/10/24 10:29 Blood Pressure 135/82 09/10/24 10:29 Pulse Oximetry 97 09/10/24 10:29 Oxygen Delivery Room Air 09/10/24 10:29 Temperature 98.3 F 09/10/24 10:29 Pulse Rate 77 09/10/24 10:29 Respiratory Rate 16 09/10/24 10:29 Blood Pressure 135/82 09/10/24 10:29 Pulse Oximetry 97 09/10/24 10:29 Oxygen Delivery Room Air 09/10/24 10:29 Reviewed MDM - Skin/Abscess/Foreign Bdy MDM Narrative Medical decision making narrative: Discussed physical exam findings; rash most c/w pityriasis rosea, and cellulitis RLE. Rx abx. Advised supportive measures and signs/symptoms to go to the ER. Pt is appropriate for outpt treatment and f/u. Differential Diagnosis Differential diagnosis: Likely abscess of skin or subcutaneous tissue, urticaria, herpes zoster, cellulitis and contact dermatitis Discharge Plan Discharge Clinical Impression: Dermatitis, Cellulitis Patient Disposition: Home, Self-Care Condition: Stable Instructions: Antibiotic Form, Cellulitis (ED), Dermatitis (ED) Additional Instructions: For rash: Take steroids and Pepcid as directed. Benadryl every 8 hours as needed For itching Cool compresses to the sites of itching, avoid hot water. Avoid scratching to reduce the risk of infection Wash with gentle soap and water only. For leg wound: take antibiotic as directed Keep the area clean and dry - cleanse with warm water and mild soap and allow to fully dry. Ok to apply neosporin to the site Keep it open to air (no bandages unless the site is draining) Warm compresses to the leg wound to help expel any drainage Watch for worsening symptoms including pain, redness, swelling, streaking, pus/drainage, fever. Go to the ER with any of these symptoms or concerns. Follow up with primary care provider Patient Language: German Prescriptions: New famotidine [Pepcid] 40 mg tablet 40 mg PO DAILY Qty: 10 0RF cephalexin 500 mg capsule 500 mg PO Q6H 7 Days Qty: 28 0RF methylprednisolone [Medrol (Cas)] 4 mg tablets,dose pack See Rx Instructions .ROUTE .COMPLEX Qty: 21 0RF Rx Instructions: orally per package directions Follow-up/Referrals: PHYSICIAN,OIL CHANGE TECHNICIAN [Primary Care Provider] -
--- OUTSIDE RECORDS SUMMARY | 2024-09-10 11:31 | XMS_ITS | Clinical Summary ---
Author Organization [facility] Address [address] [place] [address] Phone Care Team Providers Care Tool Grinding Machine Operator Name Role Phone Provider, None Primary Care Provider Unavailabl e Allergies No known active allergies Medications ondansetron (ZOFRAN ODT) 4 MG TABLET DISPERSIBLE Take 1 Tab by mouth every 4 hours as needed for Nausea. 25 Tab 0 7 Active Additional Information Patient not taking.Reported on 08/16/2024 clonazePAM (KLONOPIN) 1 MG Tablet Take 1 Tab by mouth nightly. 10 Tab 0 Active Additional Information Patient not taking.Reported on 08/16/2024 albuterol 108 (90 Base) MCG/ACT Aerosol Solution take 2 Puffs by inhalation every 6 hours as needed for Cough. 1 Inhaler 0 Active Additional Information Patient not taking.Reported on 08/16/2024 methylPREDNISol one (MEDROL DOSPACK) 4 MG Tablet Therapy Pack See product package insert for dosing schedule 21 Tablet 5 Active Benzonatate 200 MG Capsule Take 1 Capsule by mouth 3 times daily as needed for Cough for up to 14 days. 42 Capsule 5 08/12/19 25 amoxicillin (AMOXIL) 875 MG Tablet Take 1 Tablet by mouth 2 times daily for 10 days. 20 Tablet 5 08/27/19 25 Encounters Date Type Department Care Team Description 08/16/2024 3:41 AM CHILD CARE WORKER - 08/16/2024 5:16 AM CHILD CARE WORKER Emergency [facility] Emergency [address] [facility] [place] [address] Hernan Subramanian MD Strep throat Discharge Disposition: Discharged to home or Selfcare 08/16/2024 Travel 07/28/2024 12:04 PM CHILD CARE WORKER - 07/28/2024 1:11 PM CHILD CARE WORKER Emergency [facility] Emergency [address] [facility] [place] [address] Rashawn Lopez PAC Viral URI Discharge Disposition: Discharged to home or Selfcare 07/28/2024 Travel from Last 3 Months Social History Tobacco Use Types Packs/Day Years Used Date Smoking Tobacco: Never Smokeless Tobacco: Never Alcohol Use Standard Drinks/Week Comments Never 0 (1 standard drink = 0.6 oz pur e alcohol) AUDIT-C Answer Date Recorded Q1: How often do you have a drink containing alc ohol? Never 09/21/2019 Average Number of Drinks Not on file Frequency of Binge Drinking Not on file 09/09 Sex and Gender Information Value Date Recorded Sex Assigned at Male 08/16/2024 3:55 AM CHILD CARE WORKER Legal Sex Male 11:41 PM CDT Gender Identity Male 08/16/2024 3:55 AM CHILD CARE WORKER Sexual Orientation Not on file Last Filed Vital Signs Vital Sign Reading Time Taken Comments Blood Pressure 123/87 08/16/2024 5:15 AM CHILD CARE WORKER Pulse 81 08/16/2024 5:15 AM CHILD CARE WORKER Temperature 37.2 C (99 F) 08/16/2024 3:34 AM CHILD CARE WORKER Respiratory Rate 17 08/16/2024 5:15 AM CHILD CARE WORKER Oxygen Saturation 98% 08/16/2024 5:15 AM CHILD CARE WORKER Inhaled Oxygen Concentration - - Weight 86.2 kg (190 lb) 08/16/2024 3:34 AM CHILD CARE WORKER Height 177.8 cm (5' 10 ) 08/16/2024 3:34 AM CHILD CARE WORKER Body Mass Index 27.26 08/16/2024 3:34 AM CHILD CARE WORKER Plan of Treatment Health Maintenance Due Date Last Done Comments Hepatitis C Virus (HCV) Screening 1993 TdaP Immunization 1993 Hepatitis B Immunization (1 of 3 - 19+ 3-dose series) 2012 Influenza Immunization (#1) 2024 SARS-COV-2 Immunization (1 - 2023-25 season) 2024 Respiratory Syncytial Virus (RSV) Immunization (Adult) (1 - 1-dose 75+ series) 2068 Meningococcal Immunization (ACWY) Aged Out No longer eligible based on patient's age to complete this topic Pneumococcal Immunization Combined Aged Out No longer eligible based on patient's age to complete this topic Rotavirus Immunization Aged Out No lo nger eligible based on patient's age to complete this topic Procedures Procedure Name Priority Date/Time Associated Diagnosis Comments GROUP A STREP BY PCR STAT 08/16/2024 3:47 AM CHILD CARE WORKER RSV,SARS-COV-2,INFL UENZA A&B BY PCR STAT 08/16/2024 3:47 AM CHILD CARE WORKER RSV,SARS-COV-2,INFL UENZA A&B BY PCR STAT 07/28/2024 12:01 PM CHILD CARE WORKER GROUP A STREP BY PCR STAT 07/28/2024 12:01 PM CHILD CARE WORKER from Last 3 Months Results * (ABNORMAL) GROUP A STREP BY PCR (08/16/2024 3:47 AM CHILD CARE WORKER) Only the most recent of2 resultswithin the time period is included. GROUP A STREP BY PCR DETECTED( A) NOT DETECTED 08/16/2024 4:20 AM CHILD CARE WORKER [facility] Swab STRUCTURE OF ANTERIOR PORTION OF NECK / Unknown Non-Phlebotomy Collection / Unknown 08/16/2024 3:47 AM CHILD CARE WORKER 08/16/2024 3:54 AM CHILD CARE WORKER us Hernan Subramanian MD MICROBIOLOGY - GENERAL OR DERABLES Final Result [facility] [address] [place] [address] * RSV,SARS-COV-2,INFLUENZA A&B BY PCR (08/16/2024 3:47 AM CHILD CARE WORKER) Only the most recent of2 resultswithin the time period is included. FLU A Negative Negative, Error 08/16/2024 4:38 AM CHILD CARE WORKER [facility] FLU B Negative Negative 08/16/2024 4:38 AM CHILD CARE WORKER [facility] RESP SYNC VIRUS Negative Negative 4:38 AM CHILD CARE WORKER [facility] SARSCOV2 NOT DETECTED (Reference Range for this test is Not Detected) 08/16/2024 4:38 AM CHILD CARE WORKER [facility] Comment:This test was perfor med by a Reverse Enrollment Specialist PCR Method. Swab NASOPHARYNGEAL STRUCTURE / Unknown Non-Phlebotomy Collection / Unknown 08/16/2024 3:47 AM CHILD CARE WORKER 08/16/2024 3:54 AM CHILD CARE WORKER us Hernan Subramanian MD MICROBIOLOGY - GENERAL OR DERABLES Final Result [facility] [address] [place] [address] from Last 3 Months Insurance MEDICAID [place] Care Teams Tool Grinding Machine Operator Relationship Specialty Start Date End Date Provider, None [place] PCP - General 11/14/16
--- NOTE | 2024-09-10 18:38 | PC.NURSE ---
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 desk.
== END 2024-09-10 11:08 | disposition home or self-care (01) ==
PROVIDERS: Emergency Provider Nurse Practitioner Family
DX: L30.9 Dermatitis, unspecified (principal); L03.115 Cellulitis of right lower limb; Z87.891 Personal history of nicotine dependence
CPT/HCPCS: 99213; G0463

== ENCOUNTER 2024-09-11 10:31 | Emergency (ER) | payer BC, SELFPAY ==
[2024-09-11 10:39] VITALS: BP 124/84; PULSE 93; RESP 16; TEMP 37.4; O2SAT 97
--- NOTE | 2024-09-11 10:39 | ED_ITS ---
HPI - Skin/Abscess/Foreign Bdy General Chief complaint: Wound/Laceration Stated complaint: Right Leg/Skin Sore and Pain Time Seen by Provider: 09/11/24 11:05 Source: patient, RN notes reviewed and old records reviewed Mode of arrival: ambulatory Limitations: no limitations History of Present Illness HPI narrative: 28-year-old male presents to the [facility] with continue soreness after being seen yesterday to the right medial leg. Redness still noted, smaller than that drawn on outline that was done yesterday. No fluctuance noted. No drainage noted. 1 cm scabbed over area is noted. Patient reports that he is taking the antibiotic. Treatments prior to arrival: antibiotic Related Data Allergies Allergy/AdvReac Type Severity Reaction Status Date / Time No Known Allergies Allergy Verified 09/11/24 10:45 Review of Systems Review of Systems: All systems reviewed & are unremarkable except as noted in HPI and below Constitutional: Constitutional: Reports no additional constitutional c omplaints ENT: Reports system reviewed and no additional complaints, except as documented Cardiovascular: Cardiovascular: Reports no additional cardiovascular complaints, Denies chest pain and Denies dyspnea Respiratory: Respiratory: Reports no additional respiratory complaints, Denies chest congestion, Denies cough and Denies dyspnea Musculoskeletal: Musculoskeletal: Reports no additional musculoskeletal complaints Integumentary/Breasts: Skin/Breast: Reports as per HPI [facility] Past Medical History Medical History No significant past medical history Surgical History Surgical History No significant past surgical history Family History Family History Father Unknown family medical history Mother Hypertension Social History Social History Smoking status: Former smoker Tobacco type: cigarettes Second hand tobacco smoke exposure: No Smoking end date: 11/09/09 Alcohol intake: current Substance use: former Substance use type: marijuana Last use: no longer smokes marijuana Living arrangements: with family Gender identity (if verbalized by the patient): Male Comments At the time of my signature, I reviewed and agree with the nursing past medical, surgical, social, and family history. There is no relevant family history pertinent to the patient complaint. Exam Const: General: cooperative, no acute distress, well developed, alert, uncomfortable and well nourished Nutritional Appearance: well nourished Orientation/consciousness: patient oriented x3 Limitations: no limitations HENMT: Head: normal to inspection Eyes: General: appearance normal, both eyes and all related structures Alignment and Position: alignment normal Neck: Neck: normal visual inspection, full ROM, no lymphadenopathy and no meningeal signs Chest: Chest palpation & inspection: normal inspection of the chest Resp: Effort & Inspection: normal respiratory effort and able to speak in complete sentences Cardio: Rate: regular rate Skin: General skin exam: normal color and no rashes or lesions noted Other: 1 cm scabbed area, right medial leg, con tinued redness, smaller than the line that was drawn yesterday. Approximately 1 cm decrease No fluctuance, no drainage. Neuro: General: patient oriented x3, gait normal, moves all extremities and no meningeal signs Cognition (Neuro): normal cognition Speech: normal speech Gait exam (Neuro): Normal gait present Extrem: General: normal to inspection, full ROM, capillary refill normal and normal gait Psych: Appearance: grossly normal and well kempt Mental Status: mental status grossly normal Speech and movement: Normal speech and movement present and Clear speech present Affect: normal affect Attitude: cooperative Course Course Level of Care: Express Care Visit Vital Signs Vital signs: Vital Signs Temperature 99.3 F 09/11/24 10:39 Pulse Rate 93 09/11/24 10:39 Respiratory Rate 16 09/11/24 10:39 Blood Pressure 124/84 09/11/24 10:39 Pulse Oximetry 97 09/11/24 10:39 Oxygen Delivery Room Air 09/11/24 10:39 Temperature 99.3 F 09/11/24 10:39 Pulse Rate 93 09/11/24 10:39 Respiratory Rate 16 09/11/24 10:39 Blood Pressure 124/84 09/11/24 10:39 Pulse Oximetry 97 09/11/24 10:39 Oxygen Delivery Room Air 09/11/24 10:39 Reviewed MDM - Skin/Abscess/Foreign Bdy MDM Narrative Medical decision making narrative: Patient sitting in exam room. Nontoxic, vitals stable. Patient presents wanting something for pain for erythema, continued cellulitis. Already taken antibiotic. Patient appropriate for outpatient treatment with follow-up Discharge instructions reviewed with patient, as well as provided in writing per nursing staff. The instructions also include specific and strict return/GO TO THE ER as well as f/u information. All questions have been answered, and the patient deny any further questions with discharge and discharge plan. Some parts of this dictation were generated by voice recognition software and may contain typographical and/or grammatical inaccuracies. Differential Diagnosis Differential diagnosis: Likely abscess of skin or subcutaneous tissue, cellulitis, insect bites, impetigo and contact dermatitis Critical Care Time Critical Care Time Critical Care Time: No Discharge Plan Discharge Clinical Impression: Cellulitis of right lower extremity Patient Disposition: Home, Self-Care Condition: Stable Instructions: Antibiotic Form, Cellulitis (ED) Additional Instructions: Wash twice daily with warm soapy water, pat dry. Alternate Motrin and Tylenol as needed for pain every 4 hours You can alternate warm moist compresses as well as cold packs every 2-3 hours to help with discomfort Follow-up with primary care provider, it is important to have 1 for follow-up. A list of providers for [facility] has been given to you For new or worsening symptoms go directly to the emergency room Patient Language: Montenegrin Prescriptions: New ibuprofen 800 mg tablet 800 mg PO TID PRN (Reason: pain) Qty: 30 0RF No Action famotidine [Pepcid] 40 mg tablet 40 mg PO DAILY Qty: 10 0RF cephalexin 500 mg capsule 500 mg PO Q6H 7 Days Qty: 28 0RF methylprednisolone [Medrol (Cas)] 4 mg tablets,dose pack See Rx Instructions .ROUTE .COMPLEX Qty: 21 0RF Rx Instructions: orally per package directions Follow-up/Referrals: PHYSICIAN,[facility] [Primary Care Provider] - Stand Alone Forms: Work/School Release IP Time of Disposition: 11:14
--- OUTSIDE RECORDS SUMMARY | 2024-09-11 11:20 | XMS_ITS | Clinical Summary ---
Author Organization [facility] Address [address] [place] [address] Phone Care Team Providers Care Numerical Control Machine Machinist Name Role Phone Provider, None Primary Care [...] for dosing schedule 21 Tablet 5 Active amoxicillin (AMOXIL) 875 MG Tablet Take 1 Tablet by mouth 2 times daily for 10 days. 20 Tablet 5 08/27/19 25 Encounters Date Type Department Care Team Description 08/16/2024 3:41 AM FOREST FIRE CONTROL OFFICER - 08/16/2024 5:16 AM FOREST FIRE CONTROL OFFICER Emergency [facility] Emergency [address] [place] [address] Hernan Subramanian MD Strep throat Discharge Disposition: Discharged to home or Selfcare 08/16/2024 Travel 07/28/2024 12:04 PM FOREST FIRE CONTROL OFFICER - 07/28/2024 1:11 PM FOREST FIRE CONTROL OFFICER Emergency [facility] Emergency [address] [place] [address] Rashawn Lopez, INO Viral URI Discharge Disposition: Discharged to home [...] Sex Assigned at Male 08/16/2024 3:55 AM FOREST FIRE CONTROL OFFICER Legal Sex Male 11:41 PM CDT Gender Identity Male 08/16/2024 3:55 AM FOREST FIRE CONTROL OFFICER Sexual Orientation Not on file Last Filed Vital Signs Vital Sign Reading Time Taken Comments Blood Pressure 123/87 08/16/2024 5:15 AM FOREST FIRE CONTROL OFFICER Pulse 81 08/16/2024 5:15 AM FOREST FIRE CONTROL OFFICER Temperature 37.2 C (99 F) 08/16/2024 3:34 AM FOREST FIRE CONTROL OFFICER Respiratory Rate 17 08/16/2024 5:15 AM FOREST FIRE CONTROL OFFICER Oxygen Saturation 98% 08/16/2024 5:15 AM FOREST FIRE CONTROL OFFICER Inhaled Oxygen Concentration - - Weight 86.2 kg (190 lb) 08/16/2024 3:34 AM FOREST FIRE CONTROL OFFICER Height 177.8 cm (5' 10 ) 08/16/2024 3:34 AM FOREST FIRE CONTROL OFFICER Body Mass Index 27.26 08/16/2024 3:34 AM FOREST FIRE CONTROL OFFICER Plan of Treatment Health Maintenance Due Date Last Done Comments Hepatitis C Virus (HCV) Screening 1993 TdaP Immunization 1993 Hepatitis B Immunization (1 of 3 - 19+ 3-dose series) 2012 Influenza Immunization (#1) 2024 SARS-COV-2 Immunization ( - 2023- season) 2024 Respiratory Syncytial Virus (RSV) Immunization [...] STREP BY PCR STAT 08/16/2024 3:47 AM FOREST FIRE CONTROL OFFICER RSV,SARS-COV-2,INFL UENZA A&B BY PCR STAT 08/16/2024 3:47 AM FOREST FIRE CONTROL OFFICER RSV,SARS-COV-2,INFL UENZA A&B BY PCR STAT 07/28/2024 12:01 PM FOREST FIRE CONTROL OFFICER GROUP A STREP BY PCR STAT 07/28/2024 12:01 PM FOREST FIRE CONTROL OFFICER from Last 3 Months Results * (ABNORMAL) GROUP A STREP BY PCR (08/16/2024 3:47 AM FOREST FIRE CONTROL OFFICER) Only the most recent of2 resultswithin the time period is included. GROUP A STREP BY PCR DETECTED( A) NOT DETECTED 08/16/2024 4:20 AM FOREST FIRE CONTROL OFFICER [facility] Swab STRUCTURE OF ANTERIOR PORTION OF NECK / Unknown Non-Phlebotomy Collection / Unknown 08/16/2024 3:47 AM FOREST FIRE CONTROL OFFICER 08/16/2024 3:54 AM FOREST FIRE CONTROL OFFICER us Hernan Subramanian MD MICROBIOLOGY - GENERAL OR DERABLES Final Result [facility] [address] [place] [address] * RSV,SARS-COV-2,INFLUENZA A&B BY PCR (08/16/2024 3:47 AM FOREST FIRE CONTROL OFFICER) Only the most recent of2 resultswithin the time period is included. FLU A Negative Negative, Error 08/16/2024 4:38 AM FOREST FIRE CONTROL OFFICER [facility] FLU B Negative Negative 08/16/2024 4:38 AM FOREST FIRE CONTROL OFFICER [facility] RESP SYNC VIRUS Negative Negative 4:38 AM FOREST FIRE CONTROL OFFICER [facility] SARSCOV2 NOT DETECTED (Reference Range for this test is Not Detected) 08/16/2024 4:38 AM FOREST FIRE CONTROL OFFICER [facility] Comment:This test was perfor med by a Reverse Gwot Ia/Ilo Intelligence Support PCR Method. Swab NASOPHARYNGEAL STRUCTURE / Unknown Non-Phlebotomy Collection / Unknown 08/16/2024 3:47 AM FOREST FIRE CONTROL OFFICER 08/16/2024 3:54 AM FOREST FIRE CONTROL OFFICER us Hernan Subramanian MD MICROBIOLOGY - GENERAL OR DERABLES Final Result [facility] [address] [place] [address] from Last 3 Months Insurance MEDICAID BL[place] Care Teams Numerical Control Machine Machinist Relationship Specialty Start Date End Date Provider, None [place] PCP - General 11/14/16
== END 2024-09-11 11:14 | disposition home or self-care (01) ==
PROVIDERS: Emergency Provider Nurse Practitioner
DX: L03.115 Cellulitis of right lower limb (principal); Z87.891 Personal history of nicotine dependence
CPT/HCPCS: 99213; G0463

== ENCOUNTER 2024-09-16 13:41 | Emergency (ER) | payer BC, SELFPAY ==
[2024-09-16 13:47] VITALS: BP 126/92; PULSE 83; RESP 16; TEMP 36.6; O2SAT 97
--- NOTE | 2024-09-16 13:48 | ED_ITS ---
HPI - Skin/Abscess/Foreign Bdy General Chief complaint: Extremity Injury, Lower Stated complaint: Right Leg Skin Sore Time Seen by Provider: 09/16/24 13:47 Source: patient and RN notes reviewed Mode of arrival: ambulatory Limitations: dementia History of Present Illness HPI narrative: 28-year-old male presents with concern for infection on his right lower leg. Reports he has been on antibiotics for 6 days. Reports he thinks area might be improved, however it started draining purulent drainage yesterday. He denies fever, aches, chills, sweats. Reports he missed work and would like a work note. MD complaint: other (Redness) Related Data Allergies Allergy/AdvReac Type Severity Reaction Status Date / Time No Known Allergies Allergy Verified 09/16/24 13:49 Review of Systems Review of Systems: CONSTITUTIONAL: Denies malaise, chills, sweats, or fever. SKIN: Reports redness, swelling, purulent drainage to the right lower leg. Denies vesicles, bullae, numbness, pain beyond proportion MUSCULOSKELETAL: Denies joint pain or myalgia. NEUROLOGIC: Denies headache. All systems reviewed & are unremarkable except as noted in HPI and below PMFSH Past Medical History Medical History No significant past medical history Surgical History Surgical History No significant past surgical history Family History Family History Father Unknown family medical history Mother Hypertension Social History Social History Smoking status: Former smoker Tobacco type: cigarettes Second hand tobacco smoke exposure: No Smoking end date: 11/09/09 Alcohol intake: current Substance use: former Substance use type: marijuana Last use: no longer smokes marijuana Living arrangements: with family Gender identity (if verbalized by the patient): Male Comments At time of signature, agree with nursing past medical, surgical, social and family history. There is no relevant family history pertinent to the presenting complaint Exam Narrative: GENERAL: Well-appearing, well-nourished, and in no acute distress. HEAD: Normocephalic, atraumatic. EYES: PERRLA, conjunctivae clear ENT: Mucous membranes moist. NECK: Supple. No lymphadenopathy CHEST: Clear to auscultation. No respiratory distress. HEART: Regular rate and rhythm. SKIN: Warm, dry. 10 cm of Erythema, with approximately a 6 cm of raised non fluctuant induration, tenderness, warmth with sharp margins noted to the right medial lower leg with central scab. No vesicles, bullae, necrosis, ecchymosis, crepitus noted. NEURO: Alert and oriented x3. PSYCH: Normal mood and affect Course Course Emergency Course: Patient is aware of diagnosis, understands and agrees to treatment plan. Anticipatory guidance given. Patient agrees to follow-up as directed and is aware of reasons to seek care at the emergency department. Portions of this record may have been created with voice recognition software Level of Care: Express Care Visit Vital Signs Vital signs: Reviewed. MDM - Skin/Abscess/Foreign Bdy MDM Narrative Medical decision making narrative: I evaluated this in the [facility] care. History is obtained from patient who is an independent historian and physical exam was performed.? Available medical records were reviewed. ? Exam findings and relevant testing show no acute concerns or changes; patient is non-toxic appearing and is in no distress. No risk factors or findings concerning for epidural abscess, diskitis, vertebral osteomyelitis, cord compression, cauda equina, vertebral fracture or bone malignancy, AAA, or pyelonephritis. Patient instructed to consider further imaging and workup through their primary care physician as an outpatient if symptoms persist. Does not appear at this time to be erythema multiforme, bullous, SJS, TEN; no evidence at this time to suggest RMSF, NSTI, endocarditis or Lyme disease; patient looks well, nontoxic and is tolerating oral intake; no neurologic signs or symptoms; no headache, photophobia or neck pain; afebrile.? Patient does not have history of of penetrating trauma, laceration, blunt trauma, recent surgery, immunosuppression, malignancy, obesity, alcoholism, corticosteroid use.? Discussed the importance of follow-up, patient agrees; question, cellulitis versus necrotizing soft tissue infection versus abscess.?? Patient is appropriate for outpatient treatment and follow-up. Critical Care Time Critical Care Time Critical Care Time: No Discharge Plan Discharge Clinical Impression: Soft tissue infection Patient Disposition: Home Condition: Stable Instructions: Antibiotic Form, Warm Compress or Soak (ED) Additional Instructions: Please add additional antibiotic, take both antibiotics until they are gone. Please follow up with your Primary Care Doctor within 48-72 hours - call for an appointment. Rest and elevate affected area; apply moist heat 3-4 times daily for 10-15 minutes. Take Motrin 600mg every 8 hours with food for pain. Please take Antibiotics as directed. If you experience any worsening redness, swelling, streaking (red lines), fever or chills please go to the ER Patient Language: Australian Prescriptions: New doxycycline monohydrate 100 mg tablet 100 mg PO BID 7 Days Qty: 14 0RF No Action famotidine [Pepcid] 40 mg tablet 40 mg PO DAILY Qty: 10 0RF cephalexin 500 mg capsule 500 mg PO Q6H 7 Days Qty: 28 0RF methylprednisolone [Medrol (Cas)] 4 mg tablets,dose pack See Rx Instructions .ROUTE .COMPLEX Qty: 21 0RF Rx Instructions: orally per package directions ibuprofen 800 mg tablet 800 mg PO TID PRN (Reason: pain) Qty: 30 0RF Follow-up/Referrals: PHYSICIAN,FEATHER WASHER [Primary Care Provider] - Stand Alone Forms: Work/School Release IP Time of Disposition: 13:55
--- OUTSIDE RECORDS SUMMARY | 2024-09-16 15:06 | XMS_ITS | Clinical Summary ---
Author Organization [facility] Address [address] [place] [address] Phone Care Team Providers Care Technical Research Scientist Name Role Phone Provider, None Primary Care [...] Department Care Team Description 08/16/2024 3:41 AM POLO COACH - 08/16/2024 5:16 AM POLO COACH Emergency [facility] Emergency [address] [place] [address] Hernan Subramanian MD Strep throat Discharge Disposition: Discharged to home or Selfcare 08/16/2024 Travel 07/28/2024 12:04 PM POLO COACH - 07/28/2024 1:11 PM POLO COACH Emergency [facility] Emergency [address] [place] [address] Rashawn Lopez, INO Viral URI [...] Sex Assigned at Male 08/16/2024 3:55 AM POLO COACH Legal Sex Male 11:41 PM CDT Gender Identity Male 08/16/2024 3:55 AM POLO COACH Sexual Orientation Not on file Last Filed Vital Signs Vital Sign Reading Time Taken Comments Blood Pressure 123/87 08/16/2024 5:15 AM POLO COACH Pulse 81 08/16/2024 5:15 AM POLO COACH Temperature 37.2 C (99 F) 08/16/2024 3:34 AM POLO COACH Respiratory Rate 17 08/16/2024 5:15 AM POLO COACH Oxygen Saturation 98% 08/16/2024 5:15 AM POLO COACH Inhaled Oxygen Concentration - - Weight 86.2 kg (190 lb) 08/16/2024 3:34 AM POLO COACH Height 177.8 cm (5' 10 ) 08/16/2024 3:34 AM POLO COACH Body Mass Index 27.26 08/16/2024 3:34 AM POLO COACH Plan of Treatment Health Maintenance Due Date [...] STREP BY PCR STAT 08/16/2024 3:47 AM POLO COACH RSV,SARS-COV-2,INFL UENZA A&B BY PCR STAT 08/16/2024 3:47 AM POLO COACH RSV,SARS-COV-2,INFL UENZA A&B BY PCR STAT 07/28/2024 12:01 PM POLO COACH GROUP A STREP BY PCR STAT 07/28/2024 12:01 PM POLO COACH from Last 3 Months Results * (ABNORMAL) GROUP A STREP BY PCR (08/16/2024 3:47 AM POLO COACH) Only the most recent of2 resultswithin the time period is included. GROUP A STREP BY PCR DETECTED( A) NOT DETECTED 08/16/2024 4:20 AM POLO COACH [facility] Swab STRUCTURE OF ANTERIOR PORTION OF NECK / Unknown Non-Phlebotomy Collection / Unknown 08/16/2024 3:47 AM POLO COACH 08/16/2024 3:54 AM POLO COACH us Hernan Subramanian MD MICROBIOLOGY - GENERAL OR DERABLES Final Result [facility] [address] [place] [address] * RSV,SARS-COV-2,INFLUENZA A&B BY PCR (08/16/2024 3:47 AM POLO COACH) Only the most recent of2 resultswithin the time period is included. FLU A Negative Negative, Error 08/16/2024 4:38 AM POLO COACH [facility] FLU B Negative Negative 08/16/2024 4:38 AM POLO COACH [facility] RESP SYNC VIRUS Negative Negative 4:38 AM POLO COACH [facility] SARSCOV2 NOT DETECTED (Reference Range for this test is Not Detected) 08/16/2024 4:38 AM POLO COACH [facility] Comment:This test was perfor med by a Reverse Information Technology Technician PCR Method. Swab NASOPHARYNGEAL STRUCTURE / Unknown Non-Phlebotomy Collection / Unknown 08/16/2024 3:47 AM POLO COACH 08/16/2024 3:54 AM POLO COACH us Hernan Subramanian MD MICROBIOLOGY - GENERAL OR DERABLES Final Result [facility] [address] [place] [address] from Last 3 Months Insurance MEDICAID [place] Care Teams Technical Research Scientist Relationship Specialty Start Date End Date Provider, None [place] PCP - General 11/14/16
== END 2024-09-16 14:02 | disposition home or self-care (01) ==
PROVIDERS: Emergency Provider Nurse Practitioner
DX: L08.9 Local infection of the skin and subcutaneous tissue, unspecified (principal); Z87.891 Personal history of nicotine dependence
CPT/HCPCS: 99213; G0463

== ENCOUNTER 2024-09-25 12:44 | Emergency (ER) | payer BC, SELFPAY ==
[2024-09-25 12:56] VITALS: BP 130/91; PULSE 66; RESP 16; TEMP 36.8; O2SAT 99
--- OUTSIDE RECORDS SUMMARY | 2024-09-25 12:57 | XMS_ITS | Clinical Summary ---
Author Organization [facility] Address [address] [place] [address] Phone Care Team Providers Care Plate Gauger Name Role Phone Provider, None Primary Care [...] Department Care Team Description 08/16/2024 3:41 AM MANUFACTURING APPLICATIONS ENGINEER - 08/16/2024 5:16 AM MANUFACTURING APPLICATIONS ENGINEER Emergency [facility] Emergency [address] [place] [address] Hernan Subramanian MD Strep throat Discharge Disposition: Discharged to home or Selfcare 08/16/2024 Travel 07/28/2024 12:04 PM MANUFACTURING APPLICATIONS ENGINEER - 07/28/2024 1:11 PM MANUFACTURING APPLICATIONS ENGINEER Emergency [facility] Emergency [address] [place] [address] Rashawn Lopez, INO Viral URI [...] Sex Assigned at Male 08/16/2024 3:55 AM MANUFACTURING APPLICATIONS ENGINEER Legal Sex Male 11:41 PM CDT Gender Identity Male 08/16/2024 3:55 AM MANUFACTURING APPLICATIONS ENGINEER Sexual Orientation Not on file Last Filed Vital Signs Vital Sign Reading Time Taken Comments Blood Pressure 123/87 08/16/2024 5:15 AM MANUFACTURING APPLICATIONS ENGINEER Pulse 81 08/16/2024 5:15 AM MANUFACTURING APPLICATIONS ENGINEER Temperature 37.2 C (99 F) 08/16/2024 3:34 AM MANUFACTURING APPLICATIONS ENGINEER Respiratory Rate 17 08/16/2024 5:15 AM MANUFACTURING APPLICATIONS ENGINEER Oxygen Saturation 98% 08/16/2024 5:15 AM MANUFACTURING APPLICATIONS ENGINEER Inhaled Oxygen Concentration - - Weight 86.2 kg (190 lb) 08/16/2024 3:34 AM MANUFACTURING APPLICATIONS ENGINEER Height 177.8 cm (5' 10 ) 08/16/2024 3:34 AM MANUFACTURING APPLICATIONS ENGINEER Body Mass Index 27.26 08/16/2024 3:34 AM MANUFACTURING APPLICATIONS ENGINEER Plan of Treatment Health Maintenance Due Date [...] STREP BY PCR STAT 08/16/2024 3:47 AM MANUFACTURING APPLICATIONS ENGINEER RSV,SARS-COV-2,INFL UENZA A&B BY PCR STAT 08/16/2024 3:47 AM MANUFACTURING APPLICATIONS ENGINEER RSV,SARS-COV-2,INFL UENZA A&B BY PCR STAT 07/28/2024 12:01 PM MANUFACTURING APPLICATIONS ENGINEER GROUP A STREP BY PCR STAT 07/28/2024 12:01 PM MANUFACTURING APPLICATIONS ENGINEER from Last 3 Months Results * (ABNORMAL) GROUP A STREP BY PCR (08/16/2024 3:47 AM MANUFACTURING APPLICATIONS ENGINEER) Only the most recent of2 resultswithin the time period is included. GROUP A STREP BY PCR DETECTED( A) NOT DETECTED 08/16/2024 4:20 AM MANUFACTURING APPLICATIONS ENGINEER [facility] Swab STRUCTURE OF ANTERIOR PORTION OF NECK / Unknown Non-Phlebotomy Collection / Unknown 08/16/2024 3:47 AM MANUFACTURING APPLICATIONS ENGINEER 08/16/2024 3:54 AM MANUFACTURING APPLICATIONS ENGINEER us Hernan Subramanian MD MICROBIOLOGY - GENERAL OR DERABLES Final Result [facility] [address] [place] [address] * RSV,SARS-COV-2,INFLUENZA A&B BY PCR (08/16/2024 3:47 AM MANUFACTURING APPLICATIONS ENGINEER) Only the most recent of2 resultswithin the time period is included. FLU A Negative Negative, Error 08/16/2024 4:38 AM MANUFACTURING APPLICATIONS ENGINEER [facility] FLU B Negative Negative 08/16/2024 4:38 AM MANUFACTURING APPLICATIONS ENGINEER [facility] RESP SYNC VIRUS Negative Negative 4:38 AM MANUFACTURING APPLICATIONS ENGINEER [facility] SARSCOV2 NOT DETECTED (Reference Range for this test is Not Detected) 08/16/2024 4:38 AM MANUFACTURING APPLICATIONS ENGINEER [facility] Comment:This test was perfor med by a Reverse Kiln Furniture Caster PCR Method. Swab NASOPHARYNGEAL STRUCTURE / Unknown Non-Phlebotomy Collection / Unknown 08/16/2024 3:47 AM MANUFACTURING APPLICATIONS ENGINEER 08/16/2024 3:54 AM MANUFACTURING APPLICATIONS ENGINEER us Hernan Subramanian MD MICROBIOLOGY - GENERAL OR DERABLES Final Result [facility] [address] [place] [address] from Last 3 Months Insurance MEDICAID [place] Care Teams Plate Gauger Relationship Specialty Start Date End Date Provider, None [place] PCP - General 11/14/16
--- NOTE | 2024-09-25 13:02 | ED_ITS ---
HPI - General Adult General Chief complaint: Wound/Laceration Stated complaint: RT Leg infection Time Seen by Provider: 09/25/24 13:02 Source: patient Mode of arrival: ambulatory Limitations: no limitations History of Present Illness HPI narrative: 28 y/o male presented for wound check to right lower leg. Says he missed work again yesterday because the site was draining. Pt was seen in clinic 09/10 and prescribed cephalexin, seen again 09/16 added doxycycline. Pt reports compliance and says the redness and pain is better but it is still draining. Denies swelling, streaking, fever. Pt continues to report a red rash to torso, improving since 09/10. Denies itching or drainage. Related Data Allergies Allergy/AdvReac Type Severity Reaction Status Date / Time No Known Allergies Allergy Verified 09/25/24 12:59 Review of Systems Review of Systems: per HPI [facility] Past Medical History Medical History No significant past medical history Surgical History Surgical History No significant past surgical history Family History Family History Father Unknown family medical history Mother Hypertension Social History Social History Smoking status: Former smoker Tobacco type: cigarettes Second hand tobacco smoke exposure: No Smoking end date: 11/09/09 Alcohol intake: current Substance use: former Substance use type: marijuana Last use: no longer smokes marijuana Living arrangements: with family Gender identity (if verbalized by the patient): Male Comments At time of signature, I have reviewed and agree with nursing past medical, surgical, social and family history unless otherwise noted. Please see nursing chart for further information. There is no relevant family history pertinent to the presenting complaint Exam Narrative: GENERAL: Well-appearing HEAD: Normocephalic, atraumatic. EYES: conjunctivae clear, and EOMI. ENT: Mucous membranes moist. Oropharynx without edema, erythema or lesions. NECK: Supple. No lymphadenopathy CHEST: Clear to auscultation. HEART: Regular rate and rhythm. SKIN: Warm, dry. right lower medial leg with pinpoint center scab, surrounding slightly raised light erythema 3cm diameter, nontender, firm, no drainage or fluctuance. Scattered erythematous oval flat patches to chest, no drainage. NEURO: Alert and oriented x3. Course Course Emergency Course: Patient is aware of diagnosis, understands and agrees to treatment plan. Anticipatory guidance given. Patient agrees to follow-up as directed and is aware of reasons to seek care at the emergency department. Portions of this record may have been created with voice recognition software Level of Care: Express Care Visit Vital Signs Vital signs: Vital Signs Temperature 98.2 F 09/25/24 12:56 Pulse Rate 66 09/25/24 12:56 Respiratory Rate 16 09/25/24 12:56 Blood Pressure 130/91 H 09/25/24 12:56 Pulse Oximetry 99 09/25/24 12:56 Oxygen Delivery Room Air 09/25/24 12:56 Temperature 98.2 F 09/25/24 12:56 Pulse Rate 66 09/25/24 12:56 Respiratory Rate 16 09/25/24 12:56 Blood Pressure 130/91 H 09/25/24 12:56 Pulse Oximetry 99 09/25/24 12:56 Oxygen Delivery Room Air 09/25/24 12:56 Reviewed Medical Decision Making MDM Narrative Medical decision making narrative: Discussed physical exam findings; right leg wound is healing well, no erythema/induration, drainage or tenderness. Rash to chest is erythematous but denies itching or pain. Advised supportive measures and signs/symptoms to go to the ER. Pt is appropriate for outpt treatment and f/u. Differential Diagnosis Differential Diagnosis: cellulitis, abscess, viral exanthema, contact dermatitis, allergic dermatitis, eczema, urticaria, insect bites, impetigo, tinea, folliculitis Vital Signs Vital Signs: Vital Signs Temperature 98.2 F 09/25/24 12:56 Pulse Rate 66 09/25/24 12:56 Respiratory Rate 16 09/25/24 12:56 Blood Pressure 130/91 H 09/25/24 12:56 Pulse Oximetry 99 09/25/24 12:56 Oxygen Delivery Room Air 09/25/24 12:56 Temperature 98.2 F 09/25/24 12:56 Pulse Rate 66 09/25/24 12:56 Respiratory Rate 16 09/25/24 12:56 Blood Pressure 130/91 H 09/25/24 12:56 Pulse Oximetry 99 09/25/24 12:56 Oxygen Delivery Room Air 09/25/24 12:56 Discharge Plan Discharge Clinical Impression: Cellulitis of leg, right, Dermatitis Patient Disposition: Home Condition: Stable Instructions: Antibiotic Form, Cellulitis (ED) Additional Instructions: the leg wound is healing well Keep the area clean and dry; wash with soap and water daily Do not pick at the scab or squeeze the site Ok to apply neosporin to the site Keep it open to air (no bandages unless the site is oozing) For the rash on your chest, recommend daily Zyrtec Avoid triggers Watch for worsening symptoms including pain, redness, swelling, streaking, pus/drainage, fever. Go to the ER with any of these symptoms or concerns. Follow up with primary care provider in 1 week as needed. Patient Language: Armenian Prescriptions: No Action famotidine [Pepcid] 40 mg tablet 40 mg PO DAILY Qty: 10 0RF ibuprofen 800 mg tablet 800 mg PO TID PRN (Reason: pain) Qty: 30 0RF Follow-up/Referrals: PHYSICIAN,[facility] [Primary Care Provider] - Stand Alone Forms: Work/School Release IP Time of Disposition: 13:28
== END 2024-09-25 13:28 | disposition home or self-care (01) ==
PROVIDERS: Emergency Provider Nurse Practitioner Family
DX: L03.115 Cellulitis of right lower limb (principal); L30.9 Dermatitis, unspecified; Z87.891 Personal history of nicotine dependence
CPT/HCPCS: 99211; G0463